=== PATIENT | male | born 1950 | race Caucasian/White ===

== ENCOUNTER → 2016-11-07 | Day surgery (SDC) | payer OTHER ==
[2016-10-30 14:43] VITALS: Ht 175.3 cm; Wt 74.5 kg
[~2016-11-07] VITALS: Ht 175.3 cm; Wt 74.5 kg
[~2016-11-07] MED LIST: 500ML BSS 0.3ML EPI 1:1000PF IRRIG ONE; ACETAMINOPHEN 325 MG TAB PO PRN; AMVISC PLUS 0.8ML SYRINGE INT OCU ONE; ASPCH81X PO; ATROPINE SULFATE 0.1 MG/ML 5ML SYR IV PRN; BROM0.07 OPL; BSS FLUSH ONE; EpHEDrine SULFATE INJ 50 MG/ML AMP IV PRN; EpINEphrine INJ 1MG/ML AMP 1 MG/ML AMP ONE; GLIP-197 PO; LACTATED RINGER'S 1000ML 500 ML IV SCH; LIDOCAINE 3.5% OPH GEL PER APPLICATION CHARGE ONE; LIDOCAINE HCL 1% MPF 2 ML VIAL ONE; MIDAZOLAM HCL 1 MG/ML 2ML VIAL ONE; OCUCOAT 1 ML SOLN IO ONE; POVIDONE-IODINE OP SOLN 30 ML BTL ONE; PRED1SUS3 OPL; PROPARACAINE 0.5% OP SOLN PER DROP CHARGE OPL SCH; TOBRAMYCIN/DEXAMETHASONE OPH OINT PER APPLN CHARGE ONE
[2016-11-07] MEDS: PHENYLEPHRINE HCL 2.5% OP SOLN PER DROP CHARGE OPL SCH ×2 (10:30→10:35)
[2016-11-07] MEDS: TROPICAMIDE 1% OP SOLN PER DROP CHARGE OPL SCH ×2 (10:31→10:36)
[2016-11-07] MEDS: CYCLOPENTOLATE HCL 1% OP SOLN PER DROP CHARGE OPL SCH ×2 (10:32→10:37)
[2016-11-07] MEDS: KETOROLAC 0.5% OP SOLN PER DROP CHARGE OPL SCH ×2 (10:33→10:38)
[2016-11-07] MEDS: GATIFLOXACIN OP SOLN PER DROP CHARGE OPL SCH ×2 (10:34→10:44)
--- NOTE | 2016-11-07 11:15 | History & Physical Bridge - [place] ---
H&P Re-Evaluation Bridge Note: I have examined the patient, reviewed the History & Physical and in the interval since the performance of the History & Physical I have noted the following changes of clinical significance: No changes noted
[2016-11-07 11:38] VITALS: TEMP 36.8
--- NOTE | 2016-11-07 11:38 | [facility] Operative Report ---
Operative Report Date of Service Nov 07, 2016. Operative Report 1. PREOPERATIVE DIAGNOSIS: Cataract of the left eye. 2. POSTOPERATIVE DIAGNOSIS: Same. 3. PROCEDURE: Phacoemulsification with intraocular lens implantation of the left eye. SURGEON: Dr. Danilo Ashton. ANESTHESIA: Topical Lidocaine gel, 1% Non- Preserved intracameral Lidocaine, and monitored intravenous sedation. INDICATIONS FOR THE PROCEDURE: The patient is a 66 - year-old male with a history of cataract of the left eye causing significant visual impairment. The details of the proposed procedure were explained to the patient who asked appropriate questions and following discussion of all risks, benefits and alternatives agreed to have the procedure done. 4. OPERATION AND FINDINGS: DESCRIPTION OF PROCEDURE: After informed consent was obtained, the patient was brought to the Operating Room at the [facility]. The patient was placed in a supine position and then the left eye was prepped and draped in the usual sterile fashion for intraocular surgery. A drop of topical Lidocaine gel was placed in the operative eye. A wire lid speculum was then placed in the fornices. A corneal paracentesis was then created temporally. The Non-Preserved Lidocaine was then instilled into the anterior chamber. The anterior chamber was then pressurized with viscoelastic. A 2.0 mm clear corneal incision was then created temporally. A cystotome was inserted into the anterior chamber and used to create a tear in the anterior lens capsule. This capsular tear was then used to create a small flap and the flap was dragged in a counterclockwise direction in order to create a continuous curvilinear capsulorrhexis. Hydrodissection was accomplished with balanced salt solution. Phacoemulsification of the lens nucleus was then performed in a standard [id number] technique. The phaco time was 19 seconds with an average power of 10 %. The remaining cortical material was removed using irrigation aspiration. The capsular bag was then filled with viscoelastic. A Bausch & Lomb MI60L +17.0 diopters lens was then loaded into the injector and injected into the capsular bag. The remaining viscoelastic was removed with the irrigation aspiration handpiece. The wound was hydrated and then checked and found to be watertight. The intraocular pressure was checked and found to be adequate. The wire lid speculum was removed and the patient's face was cleaned and dried. TobraDex ointment was placed in the inferior fornix. The patient was discharged to the Recovery Room having tolerated the procedure well. There were no complications. The patient will be seen tomorrow in the office for follow-up. I attest to the content of the Intraoperative Record and any orders documented therein. Any exceptions are noted below.
--- NOTE | 2016-11-07 11:38 | Discharge Instructions-SurgCtr ---
Discharge Instructions Date of Service Nov 07, 2016. Visit Reason for Visit: Left Cataract Discharge Discharge Diagnosis / Problem: cataract Discharge Goals Goal(s): Improve function Activity Recommendations Activity Limitations: per Instructions/Follow-up section Anesthesia . Post Anesthesia Instructions: If you have had General Anesthesia or IV Sedation: * Do not drive today. * Resume driving when surgeon permits. * Do not make important decisions or sign legal documents today. * Call surgeon for: 1. Temperature elevations greater than 101 degrees F. 2. Uncontrollable pain. 3. Excessive bleeding. 4. Persistent nausea and vomiting. 5. Medication intolerance (nausea, vomiting or rash). * For nausea and vomiting use only clear liquids such as: tea, soda, bouillon until nausea subsides, then gradually increase diet as tolerated. * If you have any concerns or questions, call your surgeon's office. If physician is unavailable and it is an emergency, call 911 or go to the nearest emergency room. . Instructions / Follow-Up Instructions / Follow-Up ACTIVITY RECOMMENDATIONS: * No strenuous lifting, jogging or running for 4 days * No swimming or yard work for 1 week. * Limited bending is permitted, such as putting on shoes. RETURN TO SCHOOL/WORK: No work until seen by physician in office. MEDICATIONS: Resume previous medications unless instructed otherwise by your surgeon. This includes eye drops for glaucoma. Zymaxid/Gatifloxacin (marroquin cap) - one drop every 2 hours until bedtime Nevanac/Ilevro/Prolensa/Ketorolac (wilcox cap) - one drop every 4 hours until bedtime Prednisolone (white/pink cap, SHAKE WELL) - one drop every 2 hours until bedtime Starting tomorrow - all 3 drops every 4 hours until seen in the office Optive drops - as needed for discomfort SPECIAL CARE INSTRUCTIONS: * Wear eyeshield when sleeping, for four nights. * You may wear your own glasses or sunglasses while awake. * You may read or watch TV * You may shower and wash your face, but be gentle around the eye and pat dry. * Blurry vision and mild irritation are normal. * Call office if pain is more severe or vision becomes dark at . FOLLOW UP VISIT: Follow-up with Dr Ashton tomorrow. Diet Recommendations Home Diet: resume previous diet Procedures Procedures Performed: Left Cataract Phacoemulsification With Intraocular Lens Implant Pending Studies Studies pending at discharge: no Medical Emergencies . Who to Call and When: Medical Emergencies: If at any time you feel your situation is an emergency, please call 911 immediately. . Non-Emergent Contact Non-Emergency issues call your: Mechanical Process Engineer . . "Provider Documentation" section prepared by Danilo Ashton. .
--- NOTE | 2016-11-07 11:54 | Anesthesia Progress Nt - [facility] ---
Anesthesia Post Op Note Date & Time Nov 07, 2016 at 11:54 Vital Signs Pain Intensity: 0 Vital Signs Past 12 Hours Date Time Temp Pulse Resp B/P Pulse Ox O2 Delivery O2 Flow Rate FiO2 11/07/16 10:25 36.4 81 16 161/91 97 Room Air Notes Mental Status: alert / awake / arousable, participated in evaluation Pt Amnestic to Procedure: Yes Nausea / Vomiting: adequately controlled Pain: adequately controlled Airway Patency, RR, SpO2: stable & adequate BP & HR: stable & adequate Hydration State: stable & adequate Anesthetic Complications: no major complications apparent
[2016-11-07 11:58] VITALS: BP 127/76; PULSE 80; O2SAT 97
== END | disposition home or self-care (01) ==
LOC: X.SURG 09:54
PROVIDERS: ATTEND Ophthalmology
DX: H26.9 Unspecified cataract (principal); E11.36 Type 2 diabetes mellitus with diabetic cataract; Z80.9 Family history of malignant neoplasm, unspecified; Z82.49 Family history of ischemic heart disease and other diseases of the circulatory system; Z83.3 Family history of diabetes mellitus; Z68.24 Body mass index [BMI] 24.0-24.9, adult; Z87.891 Personal history of nicotine dependence; Z98.52 Vasectomy status

== ENCOUNTER → 2016-11-28 | Day surgery (SDC) | payer OTHER ==
[2016-11-17 15:26] VITALS: Ht 175.3 cm; Wt 74.5 kg
[~2016-11-28] VITALS: Ht 175.3 cm; Wt 74.5 kg
[~2016-11-28] MED LIST changes: +ONDANSETRON INJ 2 MG/ML 2 ML VIAL IV PRN; -PROPARACAINE 0.5% OP SOLN PER DROP CHARGE OPL SCH; +PROPARACAINE 0.5% OP SOLN PER DROP CHARGE OPR SCH
[2016-11-28] MEDS: PHENYLEPHRINE HCL 2.5% OP SOLN PER DROP CHARGE OPR SCH ×2 (06:34→06:39)
[2016-11-28] MEDS: TROPICAMIDE 1% OP SOLN PER DROP CHARGE OPR SCH ×2 (06:35→06:40)
[2016-11-28] MEDS: CYCLOPENTOLATE HCL 1% OP SOLN PER DROP CHARGE OPR SCH ×2 (06:36→06:41)
[2016-11-28] MEDS: KETOROLAC 0.5% OP SOLN PER DROP CHARGE OPR SCH ×2 (06:37→06:42)
[2016-11-28] MEDS: GATIFLOXACIN OP SOLN PER DROP CHARGE OPR SCH ×2 (06:38→06:48)
--- NOTE | 2016-11-28 07:48 | [facility] Operative Report ---
Operative Report Date of Service November 28, 2016. Operative Report 1. PREOPERATIVE DIAGNOSIS: Cataract of the right eye. 2. POSTOPERATIVE DIAGNOSIS: Same. 3. PROCEDURE: Phacoemulsification with intraocular lens implantation of the right eye. SURGEON: Dr. Danilo Ashton. ANESTHESIA: Topical Lidocaine gel, 1% Non- Preserved intracameral Lidocaine, and monitored intravenous sedation. INDICATIONS FOR THE PROCEDURE: The patient is a 66 - year-old male with a history of cataract of the right eye causing significant visual impairment. The details of the proposed procedure were explained to the patient who asked appropriate questions and following discussion of all risks, benefits and alternatives agreed to have the procedure done. 4. OPERATION AND FINDINGS: DESCRIPTION OF PROCEDURE: After informed consent was obtained, the patient was brought to the Operating Room at the [facility]. The patient was placed in a supine position and then the right eye was prepped and draped in the usual sterile fashion for intraocular surgery. A drop of topical Lidocaine gel was placed in the operative eye. A wire lid speculum was then placed in the fornices. A corneal paracentesis was then created temporally. The Non-Preserved Lidocaine was then instilled into the anterior chamber. The anterior chamber was then pressurized with viscoelastic. A 2.0 mm clear corneal incision was then created temporally. A cystotome was inserted into the anterior chamber and used to create a tear in the anterior lens capsule. This capsular tear was then used to create a small flap and the flap was dragged in a counterclockwise direction in order to create a continuous curvilinear capsulorrhexis. Hydrodissection was accomplished with balanced salt solution. Phacoemulsification of the lens nucleus was then performed in a standard [id number]-[id number] technique. The phaco time was 22 seconds with an average power of 8 %. The remaining cortical material was removed using irrigation aspiration. The capsular bag was then filled with viscoelastic. A Bausch & Lomb MI60L +18.0 diopters lens was then loaded into the injector and injected into the capsular bag. The remaining viscoelastic was removed with the irrigation aspiration handpiece. The wound was hydrated and then checked and found to be watertight. The intraocular pressure was checked and found to be adequate. The wire lid speculum was removed and the patient's face was cleaned and dried. TobraDex ointment was placed in the inferior fornix. The patient was discharged to the Recovery Room having tolerated the procedure well. There were no complications. The patient will be seen tomorrow in the office for follow-up. I attest to the content of the Intraoperative Record and any orders documented therein. Any exceptions are noted below.
--- NOTE | 2016-11-28 07:48 | Discharge Instructions-SurgCtr ---
Discharge Instructions Date of Service November 28, 2016. Visit Reason for Visit: Cataract Right Eye Discharge Discharge Diagnosis / Problem: cataract Discharge Goals Goal(s): Improve function Activity Recommendations Activity Limitations: per Instructions/Follow-up section Anesthesia . Post Anesthesia Instructions: If you have had General Anesthesia or IV Sedation: * Do not drive today. * Resume driving when surgeon permits. * Do not make important decisions or sign legal documents today. * Call surgeon for: 1. Temperature elevations greater than 101 degrees F. 2. Uncontrollable pain. 3. Excessive bleeding. 4. Persistent nausea and vomiting. 5. Medication intolerance (nausea, vomiting or rash). * For nausea and vomiting use only clear liquids such as: tea, soda, bouillon until nausea subsides, then gradually increase diet as tolerated. * If you have any concerns or questions, call your surgeon's office. If physician is unavailable and it is an emergency, call 911 or go to the nearest emergency room. . Instructions / Follow-Up Instructions / Follow-Up ACTIVITY RECOMMENDATIONS: * No strenuous lifting, jogging or running for 4 days * No swimming or yard work for 1 week. * Limited bending is permitted, such as putting on shoes. RETURN TO SCHOOL/WORK: No work until seen by physician in office. MEDICATIONS: Resume previous medications unless instructed otherwise by your surgeon. This includes eye drops for glaucoma. Zymaxid/Gatifloxacin (marroquin cap) - one drop every 2 hours until bedtime Nevanac/Ilevro/Prolensa/Ketorolac (wilcox cap) - one drop every 4 hours until bedtime Prednisolone (white/pink cap, SHAKE WELL) - one drop every 2 hours until bedtime Starting tomorrow - all 3 drops every 4 hours until seen in the office Optive drops - as needed for discomfort SPECIAL CARE INSTRUCTIONS: * Wear eyeshield when sleeping, for four nights. * You may wear your own glasses or sunglasses while awake. * You may read or watch TV * You may shower and wash your face, but be gentle around the eye and pat dry. * Blurry vision and mild irritation are normal. * Call office if pain is more severe or vision becomes dark at . FOLLOW UP VISIT: Follow-up with Dr Ashton tomorrow. Diet Recommendations Home Diet: resume previous diet Procedures Procedures Performed: Right Cataract Phacoemulsification With Intraocular Lens Implant Pending Studies Studies pending at discharge: no Medical Emergencies . Who to Call and When: Medical Emergencies: If at any time you feel your situation is an emergency, please call 911 immediately. . Non-Emergent Contact Non-Emergency issues call your: Mica Miner . . "Provider Documentation" section prepared by Danilo Ashton. .
[2016-11-28 07:51] VITALS: TEMP 36.2
[2016-11-28 08:09] VITALS: BP 154/75; PULSE 85; O2SAT 96
--- NOTE | 2016-11-28 08:22 | Anesthesia Progress Nt - [facility] ---
Anesthesia Post Op Note Date & Time November 28, 2016 at 08:23 Vital Signs Pain Intensity: 0 Vital Signs Past 12 Hours Date Time Temp Pulse Resp B/P Pulse Ox O2 Delivery O2 Flow Rate FiO2 11/28/16 08:09 85 16 154/75 96 Room Air 11/28/16 07:51 36.2 78 16 151/76 97 Room Air 11/28/16 06:26 36.8 73 20 157/83 97 Room Air Notes Mental Status: alert / awake / arousable, participated in evaluation Pt Amnestic to Procedure: Yes Nausea / Vomiting: adequately controlled Pain: adequately controlled Airway Patency, RR, SpO2: stable & adequate BP & HR: stable & adequate Hydration State: stable & adequate Anesthetic Complications: no major complications apparent
== END | disposition home or self-care (01) ==
LOC: X.SURG 06:15
PROVIDERS: ATTEND Ophthalmology
DX: H26.9 Unspecified cataract (principal); E11.9 Type 2 diabetes mellitus without complications

== ENCOUNTER → 2017-03-08 | Outpatient (CLI) | payer OTHER ==
[~2017-03-08] MED LIST changes: -500ML BSS 0.3ML EPI 1:1000PF IRRIG ONE; -ACETAMINOPHEN 325 MG TAB PO PRN; -AMVISC PLUS 0.8ML SYRINGE INT OCU ONE; -ATROPINE SULFATE 0.1 MG/ML 5ML SYR IV PRN; -BSS FLUSH ONE; -EpHEDrine SULFATE INJ 50 MG/ML AMP IV PRN; -EpINEphrine INJ 1MG/ML AMP 1 MG/ML AMP ONE; -LACTATED RINGER'S 1000ML 500 ML IV SCH; -LIDOCAINE 3.5% OPH GEL PER APPLICATION CHARGE ONE; -LIDOCAINE HCL 1% MPF 2 ML VIAL ONE; -MIDAZOLAM HCL 1 MG/ML 2ML VIAL ONE; -OCUCOAT 1 ML SOLN IO ONE; -ONDANSETRON INJ 2 MG/ML 2 ML VIAL IV PRN; -POVIDONE-IODINE OP SOLN 30 ML BTL ONE; -PROPARACAINE 0.5% OP SOLN PER DROP CHARGE OPR SCH; -TOBRAMYCIN/DEXAMETHASONE OPH OINT PER APPLN CHARGE ONE
--- NOTE | 2017-03-08 09:51 | DIAGNOSTIC IMAGING REPORT ---
RIGHT KNEE 3 VIEWS CLINICAL HISTORY: Persistent right knee pain. COMPARISON: None FINDINGS: Alignment of the right knee is anatomic. No fracture or joint effusion is identified. There is mild spurring of the patella at the insertion of quadriceps. Joint spaces are preserved. There is mild osteophytosis of the medial compartment. IMPRESSION: 1. No acute fracture or joint effusion of the right knee. 2. Preserved joint spaces with mild osteophytosis of the medial compartment. Electronically signed by: Ruben Gtz M.D. 03/08/2017 9:50 AM Dictated Date/Time: 03/08/2017 9:49 AM
== END | disposition home or self-care (01) ==
LOC: C.RAD1850 09:20
PROVIDERS: ATTEND Internal Medicine
DX: M25.561 Pain in right knee (principal)

== ENCOUNTER → 2017-10-23 | Outpatient (CLI) | payer OTHER ==
[2017-10-24 06:02] LABS: HEMOGLOBIN A1C 10.2 % (4.5-5.6)
== END | disposition home or self-care (01) ==
LOC: C.LAB1850 14:08
PROVIDERS: ATTEND Nurse Practitioner Family
DX: E11.9 Type 2 diabetes mellitus without complications (principal)

== ENCOUNTER 2018-08-07 09:45 | Observation (INO) ==
[2018-08-07] MEDS ORDERED: MIDAZOLAM HCL 1 MG/ML 2ML VIAL ONE (11:05)
[2018-08-07] MEDS ORDERED: HEPARIN (PORCINE) 1000 UNIT/ML 10 ML (CATH LAB USE ONLY) ONE (11:05)
[2018-08-07] MEDS ORDERED: NiCARDipine HCL INJ 2.5 MG/ML 10 ML AMP ONE (11:05)
[2018-08-07] MEDS ORDERED: fentaNYL citrate 100 MCG/2 ML VIAL ONE (11:05)
[2018-08-07] MEDS ORDERED: NITROGLYCERIN/D5W 100MCG/ML 20ML SYR ONE (11:06)
--- NOTE | 2018-08-07 11:29 | History & Physical Bridge Note ---
Date of Service August 07, 2018 History & Physical Bridge Note I have examined the patient, reviewed the History & Physical and in the interval since the performance of the History & Physical I have noted the following changes of clinical significance: no changes noted
--- NOTE | 2018-08-07 11:29 | Pre Anesthesia Assessment ---
Date of Service August 07, 2018 Pre Sedation Assessment Vital Signs Temp Pulse Resp BP Pulse Ox 08/07/18 10:02 36.5 C 88 16 163/80 H 98 Cardiovascular RRR, no murmur, no edema Respiratory normal respiratory effort, lungs clear to auscultation Pre-Sedation Airway Assessment Smoking Status: Never smoker Hx Sleep Apnea: No Short, Thick Neck: No Thyromental Distance: > or= 3.5 Finger Breadths Oral Cavity: + WNL Mallampati Class: III ASA: ASA3 NPO Status Date of Last Intake of Fluids: 08/06/18 Time of Last Intake of Fluids: 18:00 Date of Last Intake of Solid Food: 08/06/18 Time of Last Intake of Solid Foods: 18:00 Procedure Planning Contraindications for Sedation: none Current Medications Reviewed: Yes Notes The planned sedation has been discussed with the patient. Informed Consent was obtained. I have identified the patient, determined the appropriateness of sedation and have assessed the patient immediately prior to the procedure. All medicine(s) and interventions are by my order.
[2018-08-07] MEDS ORDERED: CLOPIDOGREL BISULFATE 300 MG TAB ONE (13:04)
--- NOTE | 2018-08-07 13:32 | Post Anesthesia Assessment ---
Date of Service August 07, 2018 Post Sedation Assessment Vital Signs Temp Pulse Resp BP Pulse Ox 08/07/18 10:02 36.5 C 88 16 163/80 H 98 Recovery Score Activity: Moves 4 extremities Respiration: Deep Breath/Cough Circulation: +/-20% PreAnes Value Consciousness: Fully Awake Oxygen Saturation: O2 needed for >90% Discharge Sedation Level of Care: Fast Track Phase II Post Sedation Plan On clinical assessment, the patient appears to have tolerated the sedation without complications. Patient is recovering as anticipated. Patient will continue to be monitored by nursing and may be discharged when sedation discharge criteria are met per below protocol. Upon Completions of procedure and additional 15 minutes continue every 5 minute vital signs and the P.A.R. score; then discharge to a Phase I or Fast Track to Phase II per the following guidelines: * Discharge Patient to appropriate Phase II area if PAR is 8 or greater or return to pre- procedure baseline. The post - procedure orders will be as directed. * If PAR score is less than 8 or not return to pre-procedure baseline then patient will follow Phase I monitoring till PAR is reached for Phase II. The Phase I may be done in procedure room or may call to secure a Phase I area. * If naloxone or flumazenil are used for reversal, hold in Phase I for continued monitoring from when last reversal dose was given for a minimum of 60 minutes or longer pending the nurse and/or physician discretion of patient condition before discharge to Phase II. Please call the Sedation Physician to re-evaluate and complete post-note for discharge to Phase II area. Do NOT discharge from procedure sedation or Phase 1 until post- sedation evaluation note is complete by procedure /sedation MD Sedation Discharge Instructions to be given to the patient at discharge to home.
--- NOTE | 2018-08-07 13:44 | Cardiac Catheterization ---
Cardiac Cath Procedure Full Procedure Date August 07, 2018 Pre-Procedure Diagnosis Pre-Procedure Diagnosis: Positive Stress Test AUC Score AUC Score: 7 Post-Procedure Diagnosis Post-Procedure Diagnosis: Severe CAD, Successful PCI and Normal Intracardiac Pressures Procedure(s) Performed Procedure(s) Performed: Coronary Angiography, Left Heart Cath, Drug Eluting Stent and IVUS Sociology Professor Manny Da Silva MD Computer Education Professor(s) Arian Estimated Blood Loss Estimated Blood Loss: 10 Medication(s) Medication(s): Aspirin, Clopidogrel, Fentanyl, Heparin, Lidocaine 1%, Nicardipine, Nitroglycerin and Versed Summary of Findings Indication: Abnormal stress test, accelerating angina Access: 6 Cymro left radial artery Catheters: JL4, JR4 Findings: LM -moderate caliber, short length, luminal irregularities LAD -moderate caliber vessel, diffuse 70% stenosis in mid LAD just after takeoff of moderate caliber first diagonal, distal LAD with no significant disease as wraps around the apex Circumflex - moderate caliber vessel, focal 99% mid segment stenosis, luminal irregularities in distal left PLB RCA -large caliber vessel, dominant, luminal irregularities LVEDP -9 -- PCI -- Antithrombotic therapy: Heparin, clopidogrel Procedure: Left main cannulated with EBU 3.5 guide BMW wire passed across lesion into distal vessel Mid circumflex lesion predilated with 2.5 compliant balloon Dilated lesion stented with 2.75 x 18 resolute drug-eluting stent Stent post-dilated with 3.25 noncompliant balloon IC vasodilators administered for spasm Post procedure ELENITA 3 flow, stent well expanded with minimal residual stenosis and no apparent cardiac complications. Pro-water wire placed into distal first diagonal BMW wire removed from circumflex and placed across mid LAD lesion into distal vessel. Mid LAD dilated with 2.5 compliant balloon IVUS used to assess extent of disease, degree of calcification and for procedural planning. Mildly calcified plaque throughout mid segment extending across takeoff of first diagonal into proximal vessel Proximal to mid LAD stented with 2.5 x 22 mm resolute drug-eluting stent First diagonal rewired with bar pilot 50 wire LAD stent postdilated with 3.5 NC balloon IVUS showed well expanded stent with no apparent vessel complications IC vasodilators administered for spasm ELENITA-3 flow in LAD and diagonal. Moderate residual ostial stenosis in 1st diagonal. Arterial Closure: TR band Summary: 1. Severe multi vessel coronary artery disease -99% mid circumflex stenosis 70% mid LAD diffuse disease 2. Normal intracardiac filling pressure 3. Successful PCI of mid circumflex with single drug-eluting stent (2.75 x 18 mm resolute, postdilated with 3.25 NC). 4. Successful PCI of mid LAD with single drug-eluting stent across takeoff of moderate caliber first diagonal (2.5 x 22 mm resolute, postdilated with 3.5 NC). 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 Continue dual-antiplatelet therapy for at least 6 months Continue statin, and ASCVD risk factor modification Consult cardiac Rehab Hemodynamics Rest Ao:: 133/59/94 Final Ao: 86/51/65 LV: 142/ Recommendations Recommendations: PCI without planned CABG Specimens Specimens: None Radiation Exposure (mGy) 3793 Contrast (mls) 140 Fluids (cc crystalloids) Fluids (cc crystalloids): 193 Drains Drains: None Anesthesia Moderate Procedural Complication(s) None Disposition PCU 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 Cardiac Status Clinical evaluation leading to the procedure CAD Presenation: Positive Stress Test Anginal Classification: CCS III Heart Failure: No Cardiogenic Shock within 24 Hours: No Cardiac Arrest within 24 Hours: No Imaging Studies Past 6 Months: Yes Stress Studies Past 6 Months: Yes Stress Echocardiogram: Yes - Positive and Risk/Extent of Ischemia (Large) Diagnostic Physicians Name: Manny Da Silva MD Status: Elective Closure Device Percutaneous Entry Location: Radial Closure Device: Radial Band Recommendations: PCI without planned CABG PCI Indication: + Stress Test and Unstable Angina Lesion Segment Name: Mid circumflex Culprit Artery: Yes Stenosis Prior to Rx (%): 99 Chronic Total Occlusion: No IVUS: No FFR: No Pre-Procedure ELENITA Flow: 3 Previously Treated Lesion: No Lesion Complexity: Non-High/Non-C Lesion Length (mm): 12 Thrombus Present: Yes Bifurcation Lesion: No Guidewire Across Lesion: Stenosis Post-Procedure (%): 0 Post-Procedure ELENITA Flow : 3 Devices(s) Deployed: Yes Yes Lesion #2 Segment Name: Mid LAD Culprit Artery: Yes Stenosis Prior to Rx (%): 70 Chronic Total Occlusion: No IVUS: Yes FFR: No Pre-Procedure ELENITA Flow: 3 Previously Treated Lesion: No Lesion Complexity: High/C Lesion Length (mm): 20 Thrombus Present: No Bifurcation Lesion: Yes Guidewire Across Lesion: Yes Stenosis Post-Procedure (%): 0 Post-Procedure ELENITA Flow: 3 Devices(s) Deployed: Yes Intraprocedure Events Significant Disection: No Perforation: No
[2018-08-07] MEDS ORDERED: ONDANSETRON INJ 2 MG/ML 2 ML VIAL IV PRN (13:53)
[2018-08-07] MEDS ORDERED: ACETAMINOPHEN 325 MG TAB PO PRN (13:53)
[2018-08-07] MEDS ORDERED: NITROGLYCERIN SL 0.4 MG/TAB TAB SL PRN (13:55)
[2018-08-07] MEDS ORDERED: GLUCOSE 10 TABS/TUBE PO PRN (13:56)
[2018-08-07] MEDS ORDERED: CARBOHYDRATES FOR HYPOGLYCEMIA PO PRN (13:56)
[2018-08-07] MEDS ORDERED: DEXTROSE 50% 50 ML SYRINGE IV PRN (13:56)
[2018-08-07] MEDS ORDERED: GLUCAGON FOR INJ 1 MG VIAL SQ PRN (13:56)
[2018-08-07] MEDS ORDERED: GLUCOSE 40% GEL 15 GM TUBE PO PRN (13:56)
[2018-08-07] MEDS ORDERED: SODIUM CHLORIDE 0.9% 1000ML 1,000 ML IV SCH (14:00)
[2018-08-07] MEDS ORDERED: PNEUMOCOCCAL ADMINISTRATION CHARGE ONE (15:15)
[2018-08-07] MEDS ORDERED: PNEUMOCOCCAL POLYSACCHARIDES 25 MCG/0.5 ML VIAL/SYR IM ONE (15:15)
[2018-08-07] MEDS ORDERED: LISINOPRIL 5 MG TAB PO ONE (15:51)
[2018-08-07] MEDS: INSULIN ASPART 100 UNITS/ML 3 ML PEN SC SCH ×2 (18:09→21:17)
[2018-08-07] MEDS: METOPROLOL TARTRATE 25 MG TAB PO SCH (20:26)
[2018-08-08 06:45] LABS: Basophils # (auto) 0.01 K/uL (0-0.2); Basophils % (auto) 0.2 %; Eosinophils # (auto) 0.09 K/uL (0-0.5); Eosinophils % (auto) 1.4 %; Hematocrit (blood only) 37.5 % (42-52); Hemoglobin 11.8 g/dL (14.0-18.0); Immature Granulocytes # (auto) 0.01 K/uL (0.00-0.02); Immature Granulocytes % (auto) 0.2 %; Lymphocytes # (auto) 1.26 K/uL (1.2-3.4); Lymphocytes % (auto) 20.2 %; Mean Corpuscular Hgb Conc 31.5 g/dL (32-36); Mean Corpuscular Volume 76.7 fL (80-100); Mean Platelet Volume 9.7 fL (7.4-10.4); Monocytes # (auto) 0.57 K/uL (0.11-0.59); Monocytes % (auto) 9.1 %; Neutrophils # (auto) 4.29 K/uL (1.4-6.5); Neutrophils % (auto) 68.9 %; Platelet Count 238 K/uL (130-400); RDW Coefficient of Variation 14.7 % (11.5-14.5); RDW Standard Deviation 41.5 fL (36.4-46.3); Red Blood Count 4.89 M/uL (4.7-6.1); White Blood Count 6.23 K/uL (4.8-10.8)
[2018-08-08 07:11] LABS: BUN Creatinine Ratio 16.6 (10-20); Calcium 8.8 mg/dl (8.5-10.1); Creatinine Clr Calc Pharmacy 83.9 ml/min; Est GFR (African American) 102.8; Est GFR (Non-African American) 88.7; Potassium 4.4 mmol/L (3.5-5.1)
[2018-08-08] MEDS: METOPROLOL TARTRATE 25 MG TAB PO SCH (07:55)
[2018-08-08] MEDS: INSULIN ASPART 100 UNITS/ML 3 ML PEN SC SCH (07:57)
--- NOTE | 2018-08-08 08:32 | Discharge Summary ---
Date of Service August 08, 2018 Admission HPI Per Admitting Provider Mr. Calvert is a 68-year-old man with a history of hypertension, type 2 diabetes who presented for diagnostic coronary angiogram in the setting of grossly abnormal stress test and accelerating angina. Specialty Data Cardiology Cardiac catheterization/PCI 08/07/2018: 1. Severe multi vessel coronary artery disease -99% mid circumflex stenosis 70% mid LAD diffuse disease 2. Normal intracardiac filling pressure 3. Successful PCI of mid circumflex with single drug-eluting stent (2.75 x 18 mm resolute, postdilated with 3.25 NC). 4. Successful PCI of mid LAD with single drug-eluting stent across takeoff of moderate caliber first diagonal (2.5 x 22 mm resolute, postdilated with 3.5 NC). Moderate residual ostial diagonal disease with ELENITA-3 flow after stenting Discharge Data Procedures Performed Operation Date: 08/07/18 13:00 Actual Procedures p Cath, Left with Cors and Vent - Joby Da Silva MD s Cineradiography w/Routine Exam - Joby Da Silva MD s Drug Eluting Stent SGl Vessel - Joby Da Silva MD s Drug Eluting Stent each ADDTL Vessel - Joby Da Silva MD s IVUS Coronary Single Vessel - Joby Da Silva MD Hospital Course (1) Multi-vessel coronary artery stenosis: Patient underwent cardiac catheterization via left radial artery. He was found to have a 99% mid circumflex stenosis as well as a diffuse 70% mid LAD stenosis. He underwent PCI of his circumflex with single drug-eluting stent and PCI of his mid LAD with single drug-eluting stent. He had moderate residual stenosis in a moderate caliber diagonal following stenting. Post procedure he was admitted to telemetry for further observation. Overnight no events and patient felt well in the a.m. Telemetry unremarkable. On the a.m. of discharge patient was up walking the halls with no exertional discomfort. Left radial artery access site showed no apparent complications. Patient discharged on dual antiplatelet therapy with aspirin, clopidogrel. Follow-up with cardiology in 2 weeks. Follow-up with primary care regarding microcytic anemia. Discharge Instructions Home Medications ASPIRIN (ASPIRIN CHEWABLE) 81 mg PO QAM #0 10/30/16 [History Confirmed 08/06/18] glipizide 5 mg DAILY 08/06/18 [History Confirmed 08/06/18] glipizide 10 mg PO PM 08/06/18 [History Confirmed 08/06/18] lisinopril 5 mg DAILY 08/06/18 [History Confirmed 08/06/18] metoprolol tartrate 25 mg PO BID 08/06/18 [History Confirmed 08/06/18] nitroglycerin 1 tab DIRECTED PRN 08/06/18 [History Confirmed 08/06/18] atorvastatin 80 mg PO QAM 30 Days #60 tab 08/08/18 [Rx] clopidogrel 75 mg PO QAM 30 Days #30 tab 08/08/18 [Rx]
[2018-08-08] MEDS ORDERED: LISINOPRIL 5 MG TAB PO SCH (09:00)
[2018-08-08] MEDS ORDERED: ATORVASTATIN 40 MG TAB PO SCH (09:00)
[2018-08-08] MEDS ORDERED: ASPIRIN 81 MG ECTAB PO SCH (09:00)
[2018-08-08] MEDS ORDERED: CLOPIDOGREL BISULFATE 75 MG TAB PO SCH (09:00)
[2018-08-08] MEDS ORDERED: ENOXAPARIN INJ 40 MG/0.4 ML SYR SQ SCH (09:00)
== END 2018-08-08 08:50 | disposition home or self-care (01) ==
LOC: CC 09:45 → 2S 09:45

== ENCOUNTER 2018-08-11 15:40 | Inpatient (IN) ==
[2018-08-11 16:22] LABS: Basophils # (auto) 0.02 K/uL (0-0.2); Basophils % (auto) 0.4 %; Eosinophils % (auto) 1.8 %; Hematocrit (blood only) 36.6 % (42-52); Hemoglobin 11.7 g/dL (14.0-18.0); Immature Granulocytes # (auto) 0.01 K/uL (0.00-0.02); Immature Granulocytes % (auto) 0.2 %; Lymphocytes # (auto) 1.64 K/uL (1.2-3.4); Lymphocytes % (auto) 29.1 %; Mean Corpuscular Volume 76.4 fL (80-100); Mean Platelet Volume 9.5 fL (7.4-10.4); Monocytes # (auto) 0.34 K/uL (0.11-0.59); Neutrophils # (auto) 3.53 K/uL (1.4-6.5); Neutrophils % (auto) 62.5 %; Platelet Count 245 K/uL (130-400); RDW Coefficient of Variation 14.5 % (11.5-14.5); RDW Standard Deviation 40.5 fL (36.4-46.3); Red Blood Count 4.79 M/uL (4.7-6.1); White Blood Count 5.64 K/uL (4.8-10.8)
[2018-08-11 16:39] LABS: Albumin Level 3.4 gm/dl (3.4-5.0); BUN Creatinine Ratio 16.6 (10-20); Calcium 8.5 mg/dl (8.5-10.1); Creatinine Clr Calc Pharmacy 77.7 ml/min; Est GFR (African American) 96.2; Magnesium 2.1 mg/dl (1.8-2.4)
--- NOTE | 2018-08-11 16:44 | XRay Report ---
XR chest 1V portable CLINICAL HISTORY: 68 years-old Male presenting with Chest Pain. TECHNIQUE: Portable upright AP view of the chest was obtained. COMPARISON: None. FINDINGS: Cardiac silhouette borderline enlarged. Lungs are mildly hyperinflated. Calcified granulomata noted i n the periphery of the left lung and at the right lung base. No other focal opacity. No large effusio n or pneumothorax. Osseous structures normal. Upper abdomen normal. IMPRESSION: 1. No acute cardiopulmonary disease. Electronically signed by: Iván Alegre M.D. 08/11/2018 4:43 PM
[2018-08-11 16:49] LABS: Albumin Globulin Ratio 0.8 (0.9-2); Bilirubin,Total 0.3 mg/dl (0.2-1); Globulin 4.1 gm/dl (2.5-4.0); Total Protein 7.5 gm/dl (6.4-8.2); Troponin I 0.204 ng/ml (0-0.045)
[2018-08-11] MEDS ORDERED: Heparin IV Standard *NO* Bolus ONE (17:19)
[2018-08-11] MEDS ORDERED: HEPARIN 25000 UNIT/500 ML D5W IV ONE (17:42)
[2018-08-11 17:53] LABS: Prothrombin Time 9.9 Seconds (9.0-12.0)
--- NOTE | 2018-08-11 19:29 | History & Physical Report ---
Date of Service August 11, 2018 Assessment & Plan (1) Chest pain: This patient is a very pleasant 68-year-old male with a history of DMII, HTN, microcytic anemia, and CAD with PCI on 08/07/18 with stents to the left circumflex and LAD, who presents with substernal to left-sided chest pain that came on with shoveling snow today, was nonradiating, felt different from the pain he was having prior to his cardiac catheterization, was not associated with any shortness of breath, nausea, or diaphoresis, and was relieved with 3 nitroglycerin at home. When he got to the ER, he was chest pain-free and his ECG was without any ischemic changes. His troponin was elevated at 0.2 on arrival. 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 He reports that he has been taking all the medications as prescribed since his stent placement several days ago. The ER physician contacted his fancy sewer who recommended starting him on a heparin drip and observing overnight. Obviously, there would be concern for restenosis given recent PCI, although his pain did feel different from previous. -Admit to telemetry -Trend serial troponin -Check ECG if has chest pain again -Sublingual nitroglycerin as needed chest pain -Cardiology consultation requested -Continue the heparin drip which was started in the ER -Continue aspirin, Plavix, atorvastatin, metoprolol, and lisinopril -Follow ECG in the morning (2) Multi-vessel coronary artery stenosis: With recent stent to the left circumflex and LAD as above -Meds as above (3) Diabetes mellitus: Last hemoglobin A1c is 7.3% 7 months ago -Hold home glipizide and metformin -Start sliding scale insulin while here with Accu-Cheks q. before meals at bedtime -Check hemoglobin A1c in the morning (4) HTN (hypertension), benign: Blood pressures mildly elevated here -Continue metoprolol, lisinopril -Monitor (5) Microcytic anemia: Hemoglobin 11.7 with MCV 76. Review of previous labs only revealed labs drawn in 2001 which showed hemoglobin of 13 and MCV of 83. -Hemoccult stool -Check iron studies in the morning -will find out if he has had EGD/colonoscopy -Follow CBC (6) DVT prophylaxis: Heparin drip Disposition-admit to telemetry for observation overnight History of Present Illness Chief Complaint: Chest pain Primary Care Provider: Prabhu Scott MD This patient is a very pleasant 68-year-old male with a history of DMII, HTN, microcytic anemia, and CAD with PCI on 08/07/18 with stents to the left circumflex and LAD, who presents with substernal to left-sided chest pain that came on with shoveling snow today, was nonradiating, felt different from the pain he was having prior to his cardiac catheterization, was not associated with any shortness of breath, nausea, or diaphoresis, and was relieved with 3 nitroglycerin at home. When he got to the ER, he was chest pain-free and his ECG was without any ischemic changes. His troponin was elevated at 0.2 on arrival. 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 He reports that he has been taking all the medications as prescribed since his stent placement several days ago. The ER physician contacted his fancy sewer who recommended starting him on a heparin drip and observing overnight. Allergies Allergy/AdvReac Type Severity Reaction Status Date / Time No Known Drug Allergies Allergy Unknown . Verified 11/28/16 06:25 Home Medications Home Medications Medication Instructions Recorded Confirmed Type lisinopril 5 mg DAILY 08/06/18 08/11/18 History metoprolol tartrate 25 mg PO BID 08/06/18 08/11/18 History nitroglycerin 1 tab DIRECTED PRN 08/06/18 08/11/18 History clopidogrel 75 mg PO QAM 30 Days #30 tab 08/08/18 08/11/18 Rx aspirin [Aspirin Low Dose] 81 mg PO DAILY 08/11/18 08/11/18 History atorvastatin 40 mg PO QAM 08/11/18 08/11/18 History glipizide 5 mg PO QAM 08/11/18 08/11/18 History glipizide 10 mg PO QPM 08/11/18 08/11/18 History metformin 500 mg PO HS 08/11/18 08/11/18 History Past Med/Surg History Medical History Microcytic anemia Diabetes mellitus HTN (hypertension), benign Multi-vessel coronary artery stenosis Surgical History History of vasectomy History of cataract extraction Family History Father , Age 68 Heart attack Acute DVT (deep venous thrombosis) Mother , Age 72 Melanoma Sister Breast cancer Diabetes mellitus Social History marital status: Current Living Situation: Alone Current Living Situation Comment: Has 3 daughters that live far away, and a brother that lives locally who would be his POA current occupational status: employed 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 Other Information That Helps Us Care for You: No Feels Safe at Home: Yes Smoking Status: Never smoker Do You Dip or Chew Tobacco: No Hx Alcohol Use: No Hx Substance Use: No Beliefs That Will Affect Care: None Preferred Language: Persian Review of Systems All systems reviewed & are unremarkable except as noted in HPI & below Physical Exam 2 Vital Signs (Past 24 Hours): Last Vital Signs Temp 36.4 C L 08/11/18 15:44 Pulse 91 H 08/11/18 19:01 Resp 16 08/11/18 19:01 BP 165/101 H 08/11/18 19:01 Pulse Ox 20 L 08/11/18 17:40 Constitutional: WD/WN, vitals as above Eyes: PERRL, conjunctivae normal, anicteric sclerae ENMT: external ear and nose normal, oropharynx normal Neck: trachea midline, no thyromegaly Respiratory: normal respiratory effort, lungs clear to auscultation Cardiovascular: RRR, no murmur, no edema Gastrointestinal (Abdomen): normal bowel sounds, soft, nontender, no hepatosplenomegaly Musculoskeletal: Extremities: extremities normal to inspection; no cyanosis and no clubbing Skin: no rashes, warm and dry Neurologic: moves all extremities and awake; no focal motor deficits Psychiatric: A+Ox3, euthymic affect Results & Data Laboratory Results 08/11/18 08/11/18 08/11/18 Range/Units 21:49 16:00 16:00 WBC (4.8-10.8) K/uL RBC (4.7-6.1) M/uL Hgb (14.0-18.0) g/dL Hct (42-52) % MCV (80-100) fL MCH (25-34) pg MCHC (32-36) g/dL RDW Std Deviation (36.4-46.3) fL RDW Coeff of Jaylen (11.5-14.5) % Plt Count (130-400) K/uL MPV (7.4-10.4) fL Immature Gran % (Auto) % Neut % (Auto) % Lymph % (Auto) % [place] % (Auto) % Eos % (Auto) % Baso % (Auto) % Immature Gran # (Auto) (0.00-0.02) K/uL Neut # (Auto) (1.4-6.5) K/uL Lymph # (Auto) (1.2-3.4) K/uL [place] # (Auto) (0.11-0.59) K/uL Eos # (Auto) (0-0.5) K/uL Baso # (Auto) (0-0.2) K/uL PT 9.9 (9.0-12.0) Seconds INR 1.0 (0.9-1.1) Sodium 133 L (136-145) mmol/L Potassium 4.0 (3.5-5.1) mmol/L Chloride 101 (98-107) mmol/L Carbon Dioxide 26 (21-32) mmol/L Anion Gap 6.0 (3-11) BUN 16 (7-18) mg/dl Creatinine 0.94 (0.6-1.4) mg/dl Est Cr Clr Drug Dosing 77.7 ml/min Est GFR ( Amer) 96.2 Est GFR (Non-Af Amer) 83.0 BUN/Creatinine Ratio 16.6 (10-20) Glucose 293 H (70-99) mg/dl POC Glucose 252 H (70-99) Calcium 8.5 (8.5-10.1) mg/dl Magnesium 2.1 (1.8-2.4) mg/dl Total Bilirubin 0.3 (0.2-1) mg/dl AST 38 H (15-37) U/L ALT 50 (12-78) U/L Alkaline Phosphatase 110 (45-117) U/L Troponin I 0.204 H* (0-0.045) ng/ml Total Protein 7.5 (6.4-8.2) gm/dl Albumin 3.4 (3.4-5.0) gm/dl Globulin 4.1 H (2.5-4.0) gm/dl Albumin/Globulin Ratio 0.8 L (0.9-2) Lipase 352 (73-393) U/L 08/11/18 Range/Units 16:00 WBC 5.64 (4.8-10.8) K/uL RBC 4.79 (4.7-6.1) M/uL Hgb 11.7 L (14.0-18.0) g/dL Hct 36.6 L (42-52) % MCV 76.4 L (80-100) fL MCH 24.4 L (25-34) pg MCHC 32.0 (32-36) g/dL RDW Std Deviation 40.5 (36.4-46.3) fL RDW Coeff of Jaylen 14.5 (11.5-14.5) % Plt Count 245 (130-400) K/uL MPV 9.5 (7.4-10.4) fL Immature Gran % (Auto) 0.2 % Neut % (Auto) 62.5 % Lymph % (Auto) 29.1 % [place] % (Auto) 6.0 % Eos % (Auto) 1.8 % Baso % (Auto) 0.4 % Immature Gran # (Auto) 0.01 (0.00-0.02) K/uL Neut # (Auto) 3.53 (1.4-6.5) K/uL Lymph # (Auto) 1.64 (1.2-3.4) K/uL [place] # (Auto) 0.34 (0.11-0.59) K/uL Eos # (Auto) 0.10 (0-0.5) K/uL Baso # (Auto) 0.02 (0-0.2) K/uL PT (9.0-12.0) Seconds INR (0.9-1.1) Sodium (136-145) mmol/L Potassium (3.5-5.1) mmol/L Chloride (98-107) mmol/L Carbon Dioxide (21-32) mmol/L Anion Gap (3-11) BUN (7-18) mg/dl Creatinine (0.6-1.4) mg/dl Est Cr Clr Drug Dosing ml/min Est GFR ( Amer) Est GFR (Non-Af Amer) BUN/Creatinine Ratio (10-20) Glucose (70-99) mg/dl POC Glucose (70-99) Calcium (8.5-10.1) mg/dl Magnesium (1.8-2.4) mg/dl Total Bilirubin (0.2-1) mg/dl AST (15-37) U/L ALT (12-78) U/L Alkaline Phosphatase (45-117) U/L Troponin I (0-0.045) ng/ml Total Protein (6.4-8.2) gm/dl Albumin (3.4-5.0) gm/dl Globulin (2.5-4.0) gm/dl Albumin/Globulin Ratio (0.9-2) Lipase (73-393) U/L Diagnostic Findings Chest x-ray image personally reviewed by me and agree with the following report: XR chest 1V portable CLINICAL HISTORY: 68 years-old Male presenting with Chest Pain. TECHNIQUE: Portable upright AP view of the chest was obtained. COMPARISON: None. FINDINGS: Cardiac silhouette borderline enlarged. Lungs are mildly hyperinflated. Calcified granulomata noted in the periphery of the left lung and at the right lung base. No other focal opacity. No large effusion or pneumothorax. Osseous structures normal. Upper abdomen normal. IMPRESSION: 1. No acute cardiopulmonary disease. 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
[2018-08-11] MEDS ORDERED: ONDANSETRON INJ 2 MG/ML 2 ML VIAL IV PRN (20:33)
[2018-08-11] MEDS ORDERED: ACETAMINOPHEN 325 MG TAB PO PRN (20:33)
[2018-08-11] MEDS ORDERED: NITROGLYCERIN SL 0.4 MG/TAB TAB SL PRN (20:33)
[2018-08-11] MEDS ORDERED: GLUCAGON FOR INJ 1 MG VIAL SQ PRN (20:33)
[2018-08-11] MEDS ORDERED: DEXTROSE 50% 50 ML SYRINGE IV PRN (20:33)
[2018-08-11] MEDS ORDERED: CARBOHYDRATES FOR HYPOGLYCEMIA PO PRN (20:33)
[2018-08-11] MEDS ORDERED: POLYETHYLENE (MIRALAX) 17 GM PACK PO PRN (20:33)
[2018-08-11] MEDS ORDERED: GLUCOSE 40% GEL 15 GM TUBE PO PRN (20:33)
[2018-08-11] MEDS ORDERED: GLUCOSE 10 TABS/TUBE PO PRN (20:33)
[2018-08-11] MEDS: METOPROLOL TARTRATE 25 MG TAB PO SCH (21:51)
[2018-08-11] MEDS: INSULIN ASPART 100 UNITS/ML 3 ML PEN SC SCH (21:55)
[2018-08-11] MEDS: HEPARIN SODIUM/DEXTROSE 25,000 UNITS/500 ML BAG IV SCH (21:56)
--- NOTE | 2018-08-11 22:31 | Emergency Department Note ---
Entered by Hao Enriquez acting as a scribe for Bucky Carney MD History of Present Illness General Chief complaint: Chest Pain Stated complaint: CHEST PAINS Time Seen by Provider: 08/11/18 16:02 Source: patient Limitations: no limitations History of Present Illness Provider complaint: Chest pain Onset (ago): hour(s) Location: chest and left Radiation: non-radiation Pain Consistency: + now resolved Maximum Pain Intensity: 1 Quality: + other ("discomfort" ) Relieved By: + medication (Nitro) Associated symptoms: + denies other symptoms (No abd pain ) and + other; no fever/chills, no nausea/vomiting and no shortness of breath Treatments prior to arrival: other (Nitro) The patient is a 68 year old white male with a history of multi-vessel coronary artery stenosis and recent stent placement who presents to the Emergency Room with complaints of now-resolved chest pain that began this morning. The patient has a significant recent medical history including a cardiac catheterization on Sunday, 4 days ago, with subsequent placement of 2 stents. This morning he went out to shovel some snow and developed pain over the left chest. He describes the sensation as a "discomfort" that did not radiate. The patient also complains of "numbness" in the left arm/hand. He did take 3 0.4-mg Nitroglycerin this morning which improved the pain. Dr. Da Silva prescribed the patient Plavix and Baby Aspirin following the procedure, which he did take this morning. Home Medications Home Medications Medication Instructions Recorded Confirmed Type lisinopril 5 mg DAILY 08/06/18 08/11/18 History metoprolol tartrate 25 mg PO BID 08/06/18 08/11/18 History nitroglycerin 1 tab DIRECTED PRN 08/06/18 08/11/18 History clopidogrel 75 mg PO QAM 30 Days #30 tab 08/08/18 08/11/18 Rx aspirin [Aspirin Low Dose] 81 mg PO DAILY 08/11/18 08/11/18 History atorvastatin 40 mg PO QAM 08/11/18 08/11/18 History glipizide 5 mg PO QAM 08/11/18 08/11/18 History glipizide 10 mg PO QPM 08/11/18 08/11/18 History metformin 500 mg PO HS 08/11/18 08/11/18 History Allergies Allergy/AdvReac Type Severity Reaction Status Date / Time No Known Drug Allergies Allergy Unknown . Verified 11/28/16 06:25 Past Med/Surg History Medical History Microcytic anemia Diabetes mellitus HTN (hypertension), benign Multi-vessel coronary artery stenosis Surgical History History of vasectomy History of cataract extraction Family History Father , Age 68 Heart attack Acute DVT (deep venous thrombosis) Mother , Age 72 Melanoma Sister Breast cancer Diabetes mellitus Social History marital status: Current Living Situation: Alone Current Living Situation Comment: Has 3 daughters that live far away, and a brother that lives locally who would be his POA current occupational status: employed 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 and A total of 10 systems reviewed and were otherwise negative Physical Exam Vital Signs Vital Signs - 24 hr 08/11/18 15:44 08/11/18 15:59 08/11/18 16:00 Temperature 36.4 C L Temperature Source Oral Sepsis Recent Fever Within 48 Hours No Sepsis New/Unexplained Change in Mental Status No Sepsis Action Taken by Nursing No Action Required Pulse Rate 85 73 75 Pulse Rate [Apical] Pulse Rhythm Pulse Rhythm [Apical] Respiratory Rate 18 15 16 Respiratory Effort / Characteristics Non-Labored Spontaneous Respiratory Depth Normal Respiratory Pattern Regular Blood Pressure Blood Pressure [Right Arm] Blood Pressure Mean Blood Pressure Mean [Right Arm] Blood Pressure Position [Right Arm] Pulse Oximetry 98 Oxygen Delivery Method Room Air 08/11/18 16:14 08/11/18 16:25 08/11/18 17:00 Temperature Temperature Source Sepsis Recent Fever Within 48 Hours Sepsis New/Unexplained Change in Mental Status Sepsis Action Taken by Nursing Pulse Rate 76 70 75 Pulse Rate [Apical] Pulse Rhythm Regular Pulse Rhythm [Apical] Respiratory Rate 18 16 Respiratory Effort / Characteristics Respiratory Depth Respiratory Pattern Blood Pressure 149/75 H Blood Pressure [Right Arm] Blood Pressure Mean 99 Blood Pressure Mean [Right Arm] Blood Pressure Position [Right Arm] Pulse Oximetry 98 Oxygen Delivery Method Room Air 08/11/18 17:31 08/11/18 17:34 08/11/18 17:40 Temperature Temperature Source Sepsis Recent Fever Within 48 Hours Sepsis New/Unexplained Change in Mental Status Sepsis Action Taken by Nursing Pulse Rate 71 69 Pulse Rate [Apical] 67 Pulse Rhythm Pulse Rhythm [Apical] Regular Respiratory Rate 16 20 Respiratory Effort / Characteristics Non-Labored Respiratory Depth Normal Respiratory Pattern Regular Blood Pressure 149/78 H Blood Pressure [Right Arm] 149/78 H Blood Pressure Mean 101 Blood Pressure Mean [Right Arm] 101 Blood Pressure Position [Right Arm] Sitting Pulse Oximetry 20 L Oxygen Delivery Method Room Air 08/11/18 18:01 08/11/18 18:02 08/11/18 19:00 Temperature Temperature Source Sepsis Recent Fever Within 48 Hours Sepsis New/Unexplained Change in Mental Status Sepsis Action Taken by Nursing Pulse Rate 69 65 90 Pulse Rate [Apical] Pulse Rhythm Pulse Rhythm [Apical] Respiratory Rate 22 22 18 Respiratory Effort / Characteristics Respiratory Depth Respiratory Pattern Blood Pressure 162/90 H Blood Pressure [Right Arm] Blood Pressure Mean 114 Blood Pressure Mean [Right Arm] Blood Pressure Position [Right Arm] Pulse Oximetry Oxygen Delivery Method 08/11/18 19:01 08/11/18 19:02 08/11/18 19:40 Temperature Temperature Source Sepsis Recent Fever Within 48 Hours Sepsis New/Unexplained Change in Mental Status Sepsis Action Taken by Nursing Pulse Rate 91 H 87 77 Pulse Rate [Apical] Pulse Rhythm Pulse Rhythm [Apical] Respiratory Rate 16 17 15 Respiratory Effort / Characteristics Respiratory Depth Respiratory Pattern Blood Pressure 165/101 H 150/77 H Blood Pressure [Right Arm] Blood Pressure Mean 122 101 Blood Pressure Mean [Right Arm] Blood Pressure Position [Right Arm] Pulse Oximetry Oxygen Delivery Method 08/11/18 20:34 Temperature 36.4 C L Temperature Source Oral Sepsis Recent Fever Within 48 Hours Sepsis New/Unexplained Change in Mental Status Sepsis Action Taken by Nursing Pulse Rate Pulse Rate [Apical] 70 Pulse Rhythm Pulse Rhythm [Apical] Respiratory Rate 18 Respiratory Effort / Characteristics Respiratory Depth Respiratory Pattern Blood Pressure Blood Pressure [Right Arm] 162/79 H Blood Pressure Mean Blood Pressure Mean [Right Arm] 106 Blood Pressure Position [Right Arm] Pulse Oximetry 97 Oxygen Delivery Method GENERAL: Well appearing, well nourished, NAD, non-toxic. EYE EXAM: Normal conjunctiva. PERRL, no anisocoria and EOM's grossly intact w/o pain. OROPHARYNX: No exudate, posterior pharynx is clear, no tonsillar/uvular deviation or swelling. NECK: Supple, no nuchal rigidity, no adenopathy, non-tender. no signs of meningismus. LUNGS: Clear to auscultation. Normal chest wall mechanics. HEART: NSR, no MRG. ABDOMEN: Abdomen soft, non-tender, normo-active bowel sounds, no masses, no rebound or guarding. BACK: No CVA TTP. SKIN: No rashes and no bruising. UPPER EXTREMITIES: There is bruising over the volar distal aspect of the left wrist and hand. Well perfused, good radial pulses. LOWER EXTREMITIES: No pitting edema. No calf pain. NEURO EXAM: Cranial nerves II-XII grossly intact, normal speech, 5/5 strength throughout, moves all 4 extremities on command w/o issue. Course 1604: Past medical records reviewed. The patient was evaluated in room B2, and a complete history and physical examination were performed. 1657: I reviewed the patient's case with Dr. Da Silva - [facility]. He suggests starting Heparin and giving the patient a full-dose Aspirin. He suggests admitting to medicine. 1712: I reviewed the patient's [facility] She will evaluate the patient for further management. 1722: I updated the patient at this time. Consultations Consultation #1: 1657: I reviewed the patient's case with Dr. Avinash [facility]. He suggests starting Heparin and giving the patient a full-dose Aspirin. He suggests admitting to medicine. Consultation #2: 1712: I reviewed the patient's case [facility] She will evaluate the patient for further management. Administered Medications Heparin Sodium/Dextrose (Heparin Sodium/Dextrose) 25,000 units in 500 mls @ 27 mls/hr IV .[id number] [facility]; Protocol Stop: 09/10/18 21:44 Last Admin: 08/11/18 21:56 Dose: 1,350 units/hr, 27 mls/hr Insulin Aspart (Novolog Flexpen) 0 units SC ACHS AZEB Stop: 09/10/18 20:59 Last Admin: 08/11/18 21:55 Dose: 4 units Metoprolol Tartrate (Lopressor) 25 mg PO BID AZEB Stop: 09/10/18 20:59 Last Admin: 08/11/18 21:51 Dose: 25 mg Discontinued Medications Heparin Sodium/Dextrose () 1 ea N/A ONE ONE; Protocol Stop: 08/11/18 17:20 Last Admin: 08/11/18 17:57 Dose: Not Given Heparin Sodium/Dextrose (Heparin Sodium/Dextrose) Confirm Administered Dose 25, 000 units IV .STK-MED ONE Stop: 08/11/18 17:43 Last Admin: 08/11/18 17:55 Dose: 1,350 units Medical Decision Making Medical Records Attestation: I reviewed the patient's medical records. Home Medications Current Medication List: was personally reviewed by me Laboratory Data Attestation: I reviewed the patient's lab results. Result diagrams: 08/11/18 16:00 08/11/18 16:00 Lab Results 08/11/18 08/11/18 08/11/18 Range/Units 16:00 16:00 16:00 WBC 5.64 (4.8-10.8) K/uL RBC 4.79 (4.7-6.1) M/uL Hgb 11.7 L (14.0-18.0) g/dL Hct 36.6 L (42-52) % MCV 76.4 L (80-100) fL MCH 24.4 L (25-34) pg MCHC 32.0 (32-36) g/dL RDW Std Deviation 40.5 (36.4-46.3) fL RDW Coeff of Jaylen 14.5 (11.5-14.5) % Plt Count 245 (130-400) K/uL MPV 9.5 (7.4-10.4) fL Immature Gran % (Auto) 0.2 % Neut % (Auto) 62.5 % Lymph % (Auto) 29.1 % [place] % (Auto) 6.0 % Eos % (Auto) 1.8 % Baso % (Auto) 0.4 % Immature Gran # (Auto) 0.01 (0.00-0.02) K/uL Neut # (Auto) 3.53 (1.4-6.5) K/uL Lymph # (Auto) 1.64 (1.2-3.4) K/uL [place] # (Auto) 0.34 (0.11-0.59) K/uL Eos # (Auto) 0.10 (0-0.5) K/uL Baso # (Auto) 0.02 (0-0.2) K/uL PT 9.9 (9.0-12.0) Seconds INR 1.0 (0.9-1.1) Sodium 133 L (136-145) mmol/L Potassium 4.0 (3.5-5.1) mmol/L Chloride 101 (98-107) mmol/L Carbon Dioxide 26 (21-32) mmol/L Anion Gap 6.0 (3-11) BUN 16 (7-18) mg/dl Creatinine 0.94 (0.6-1.4) mg/dl Est Cr Clr Drug Dosing 77.7 ml/min Est GFR ( Amer) 96.2 Est GFR (Non-Af Amer) 83.0 BUN/Creatinine Ratio 16.6 (10-20) Glucose 293 H (70-99) mg/dl POC Glucose (70-99) Calcium 8.5 (8.5-10.1) mg/dl Magnesium 2.1 (1.8-2.4) mg/dl Total Bilirubin 0.3 (0.2-1) mg/dl AST 38 H (15-37) U/L ALT 50 (12-78) U/L Alkaline Phosphatase 110 (45-117) U/L Troponin I 0.204 H* (0-0.045) ng/ml Total Protein 7.5 (6.4-8.2) gm/dl Albumin 3.4 (3.4-5.0) gm/dl Globulin 4.1 H (2.5-4.0) gm/dl Albumin/Globulin Ratio 0.8 L (0.9-2) Lipase 352 (73-393) U/L 08/11/18 Range/Units 21:49 WBC (4.8-10.8) K/uL RBC (4.7-6.1) M/uL Hgb (14.0-18.0) g/dL Hct (42-52) % MCV (80-100) fL MCH (25-34) pg MCHC (32-36) g/dL RDW Std Deviation (36.4-46.3) fL RDW Coeff of Jaylen (11.5-14.5) % Plt Count (130-400) K/uL MPV (7.4-10.4) fL Immature Gran % (Auto) % Neut % (Auto) % Lymph % (Auto) % [place] % (Auto) % Eos % (Auto) % Baso % (Auto) % Immature Gran # (Auto) (0.00-0.02) K/uL Neut # (Auto) (1.4-6.5) K/uL Lymph # (Auto) (1.2-3.4) K/uL [place] # (Auto) (0.11-0.59) K/uL Eos # (Auto) (0-0.5) K/uL Baso # (Auto) (0-0.2) K/uL PT (9.0-12.0) Seconds INR (0.9-1.1) Sodium (136-145) mmol/L Potassium (3.5-5.1) mmol/L Chloride (98-107) mmol/L Carbon Dioxide (21-32) mmol/L Anion Gap (3-11) BUN (7-18) mg/dl Creatinine (0.6-1.4) mg/dl Est Cr Clr Drug Dosing ml/min Est GFR ( Amer) Est GFR (Non-Af Amer) BUN/Creatinine Ratio (10-20) Glucose (70-99) mg/dl POC Glucose 252 H (70-99) Calcium (8.5-10.1) mg/dl Magnesium (1.8-2.4) mg/dl Total Bilirubin (0.2-1) mg/dl AST (15-37) U/L ALT (12-78) U/L Alkaline Phosphatase (45-117) U/L Troponin I (0-0.045) ng/ml Total Protein (6.4-8.2) gm/dl Albumin (3.4-5.0) gm/dl Globulin (2.5-4.0) gm/dl Albumin/Globulin Ratio (0.9-2) Lipase (73-393) U/L Imaging Data Attestation: I personally reviewed and interpreted this imaging study as follows : Radiologist's Impression: XR chest 1V portable CLINICAL HISTORY: 68 years-old Male presenting with Chest Pain. TECHNIQUE: Portable upright AP view of the chest was obtained. COMPARISON: None. FINDINGS: Cardiac silhouette borderline enlarged. Lungs are mildly hyperinflated. Calcified granulomata noted in the periphery of the left lung and at the right lung base. No other focal opacity. No large effusion or pneumothorax. Osseous structures normal. Upper abdomen normal. IMPRESSION: 1. No acute cardiopulmonary disease. Electronically signed by: Iván Alegre M.D. 08/11/2018 4:43 PM ECG Data Attestation: I personally reviewed and interpreted this ECG as follows: Indication: chest pain Rate (beats per minute): 74 Rhythm: normal sinus Findings: + other (normal axis, normal intervals) and + T-wave inversion (AvL) Blood Pressure Blood Pressure Findings: Elevated blood pressure Blood Pressure Disposition: further management by hospitalist SEAN Narrative The patient is a 68 year old white male with a history of multi-vessel coronary artery stenosis and recent stent placement who presents to the Emergency Room with complaints of now-resolved chest pain that began this morning. Differential diagnosis: Etiologies such as shingles, musculoskeletal pain, pericarditis, myocarditis, cardiac ischemia, pericardial tamponade, pneumonia, pneumothorax, pleural effusion, hemothorax, pleurisy, aortic pathology, pulmonary embolism, intra- abdominal process, as well as others were considered. Patient was seen and evaluated the bedside. The patient did have a recent stent placed to the left circumflex as well as left anterior descending artery by Dr. Da Silva on Sunday. The patient states he was shoveling some snow today and did have a recurrence of some centralized chest pain and associated improvement with nitroglycerin. The patient had taken 3 prior to arrival. The patient is currently chest pain-free. Patient did a blood work completed along with EKG and troponin. The patient EKG is unremarkable. Troponin is 0.2. The patient is without chest pain. I did speak with Dr. Da Silva who recommended heparin. Patient was started on a heparin drip. I did speak the on-call hospitalist who agreed to further evaluate treat the patient. The patient was admitted to the medicine service. Impression & Plan Atypical chest pain Critical Care Time I have personally spent greater than 45 minutes of critical care time in the direct management of this patient. This includes bedside care, interpretation of diagnostic studies, and testing, discussion with consultants, patient, and family members, and other required patient management activities. This 45 minutes is in excess of all separately billable procedures. Critical Care Time: Yes Total Critical Care Time: 45 Discharge Plan Visit Data *Final* Discharge Date/Time: 08/11/18 20:39 Chief Complaint: Chest Pain Stated Complaint: CHEST PAINS ED Provider: Bucky Carney Discharge Problem: Atypical chest pain Patient Disposition: Admitted As Inpatient Discharge Instructions Interventions: ED Discharge Assessment Last Done: 08/11/18 20:39 The scribe's documentation has been prepared under my direction and personally reviewed by me in its entirety. I confirm that the note above accurately reflects all work, treatment, procedures, and medical decision making performed by me.
[2018-08-12 00:01] LABS: Partial Thromboplastin Ratio 1.6; Partial Thromboplastin Time 42.1 Seconds (21.0-31.0)
[2018-08-12] MEDS ORDERED: HEPARIN IV BOLUS 3,000 UNITS in SYRINGE 0 ML IV SCH (00:15)
[2018-08-12 06:42] LABS: Partial Thromboplastin Ratio 3.1
[2018-08-12 06:54] LABS: Ferritin 12.3 ng/ml (8-388); Troponin I 0.146 ng/ml (0-0.045)
[2018-08-12 06:59] LABS: BUN Creatinine Ratio 16.2 (10-20); Calcium 8.7 mg/dl (8.5-10.1); Creatinine Clr Calc Pharmacy 76.8 ml/min; Est GFR (African American) 94.9; Est GFR (Non-African American) 81.9; Magnesium 2.2 mg/dl (1.8-2.4); Potassium 4.6 mmol/L (3.5-5.1)
[2018-08-12 07:12] LABS: Estimated Average Glucose 255 mg/dl
[2018-08-12 07:18] LABS: Partial Thromboplastin Time 80.5 Seconds (21.0-31.0)
[2018-08-12] MEDS: INSULIN ASPART 100 UNITS/ML 3 ML PEN SC SCH ×4 (08:07→20:27)
[2018-08-12] MEDS: METOPROLOL TARTRATE 25 MG TAB PO SCH (08:08)
[2018-08-12] MEDS: ASPIRIN 81 MG ECTAB PO SCH (08:08)
[2018-08-12] MEDS: CLOPIDOGREL BISULFATE 75 MG TAB PO SCH (08:08)
[2018-08-12] MEDS: ATORVASTATIN 40 MG TAB PO SCH (08:08)
[2018-08-12] MEDS: LISINOPRIL 5 MG TAB PO SCH (08:09)
--- NOTE | 2018-08-12 10:04 | Cardiology Consultation ---
Date of Consultation August 12, 2018 Assessment & Plan (1) Multi-vessel coronary artery stenosis: Patient with typical anginal symptoms yesterday following exertion. Has been chest pain-free since arrival but noted to have mildly elevated troponin which has since peaked and trended down. Suspicion for sub-acute stent thrombosis is low. Reviewed recent coronary angiography from last week. He did have a moderate caliber diagonal at the site of LAD stenting with moderate residual stenosis post procedure. Some concenr for flow-limiting disease at that site. In that setting will plan to proceed with cardiac catheterization via left radial artery. Continue heparin infusion until configuration release manager to Service Desk Technician. N.p.o. today. Continue dual antiplatelet therapy with aspirin, clopidogrel. Further conditions pending findings of cardiac catheterization. Thank you for allowing us to participate in the care of this patient. Please contact with any questions. History of Present Illness Attending Physician: Leeanne Caro MD History of Present Illness Mr. Calvert is a 68-year-old male with a medical history significant for hypertension and type 2 DM and multivessel coronary artery disease post PCI with stent to LAD, circumflex last week who returned with acute onset chest pain yesterday. Patient states had been feeling well following PCI until yesterday morning when was out shoveling snow and soon thereafter developed stuttering central chest pain/pressure with numbness in his left arm. He took 3 sublingual nitroglycerin with near complete resolution of symptoms but due to residual symptoms presented to the ED. Upon arrival patient was chest pain-free he was hemodynamically electrically stable. His presenting EKG was largely unremarkable. Initial troponin was positive at 0.2 and he was admitted for further observation. Since admission he had no further chest pain. Troponin peaked at 0.23 and has since trended down. No events on telemetry. PCI from 08/07/2018: Summary: 1. Severe multi vessel coronary artery disease -99% mid circumflex stenosis 70% mid LAD diffuse disease 2. Normal intracardiac filling pressure 3. Successful PCI of mid circumflex with single drug-eluting stent (2.75 x 18 mm resolute, postdilated with 3.25 NC). 4. Successful PCI of mid LAD with single drug-eluting stent across takeoff of moderate caliber first diagonal (2.5 x 22 mm resolute, postdilated with 3.5 NC). Moderate residual ostial diagonal disease with ELENITA-3 flow after stenting Allergies Allergy/AdvReac Type Severity Reaction Status Date / Time No Known Drug Allergies Allergy Unknown . Verified 11/28/16 06:25 Home Medications Home Medications Medication Instructions Recorded Confirmed Type lisinopril 5 mg DAILY 08/06/18 08/11/18 History nitroglycerin 1 tab DIRECTED PRN 08/06/18 08/11/18 History clopidogrel 75 mg PO QAM 30 Days #30 tab 08/08/18 08/11/18 Rx aspirin [Aspirin Low Dose] 81 mg PO DAILY 08/11/18 08/11/18 History atorvastatin 40 mg PO QAM 08/11/18 08/11/18 History glipizide 5 mg PO QAM 08/11/18 08/11/18 History glipizide 10 mg PO QPM 08/11/18 08/11/18 History ferrous sulfate 325 mg PO BID #60 tab 08/13/18 Rx metoprolol tartrate 50 mg PO BID #60 tab 08/13/18 Rx Patient History Medical History Microcytic anemia Diabetes mellitus HTN (hypertension), benign Multi-vessel coronary artery stenosis Surgical History History of vasectomy History of cataract extraction Family History Father , Age 68 Heart attack Acute DVT (deep venous thrombosis) Mother , Age 72 Melanoma Sister Breast cancer Diabetes mellitus Social History marital status: Current Living Situation: Alone Current Living Situation Comment: Has 3 daughters that live far away, and a brother that lives locally who would be his POA current occupational status: employed 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 Other Information That Helps Us Care for You: No Feels Safe at Home: Yes Smoking Status: Never smoker Do You Dip or Chew Tobacco: No Hx Alcohol Use: No Hx Substance Use: No Beliefs That Will Affect Care: None Preferred Language: Malaysian Review of Systems 10 point review of systems was completed and was otherwise negative unless stated in HPI Physical Exam 2 Vital Signs (Past 24 Hours): Last Vital Signs Temp 36.5 C 08/12/18 08:00 Pulse 75 08/12/18 08:00 Resp 16 08/12/18 08:00 BP 157/88 H 08/12/18 08:00 Pulse Ox 98 08/12/18 08:00 Physical Exam: General: Comfortable, no acute distress Eyes: Sclerae anicteric, extraocular movements intact HENT: Oropharynx clear mucous membranes moist Neck: Normal carotid upstrokes, no bruits. No JVD. Lungs: Clear to auscultation bilaterally, no rhonchi or wheezes Cardiac: Regular rate and rhythm, no murmurs, rubs or gallops. Vascular: 2+ radial, DP and PT pulses. Minimal residual ecchymosis at left radial artery access site Abdomen: Soft, nontender, nondistended, positive bowel sounds. Extremities: Well perfused, no peripheral edema Skin: No rashes or lesions. Neuro: Nonfocal Psych: Alert orient x3, normal affect and mood
[2018-08-12] MEDS: INSULIN GLARGINE SOLOSTAR 100 UNITS/ML 3 ML PEN SC SCH (10:09)
[2018-08-12] MEDS: HEPARIN SODIUM/DEXTROSE 25,000 UNITS/500 ML BAG IV SCH (10:38)
[2018-08-12 13:58] LABS: Partial Thromboplastin Ratio 2.2
[2018-08-12 14:02] LABS: Partial Thromboplastin Time 56.7 Seconds (21.0-31.0)
[2018-08-12] MEDS ORDERED: HEPARIN (PORCINE) 1000 UNIT/ML 10 ML (CATH LAB USE ONLY) ONE (14:12)
[2018-08-12] MEDS ORDERED: NiCARDipine HCL INJ 2.5 MG/ML 10 ML AMP ONE (14:12)
[2018-08-12] MEDS ORDERED: fentaNYL citrate 100 MCG/2 ML VIAL ONE (14:12)
[2018-08-12] MEDS ORDERED: MIDAZOLAM HCL 1 MG/ML 2ML VIAL ONE (14:12)
[2018-08-12] MEDS ORDERED: NITROGLYCERIN/D5W 100MCG/ML 20ML SYR ONE (14:13)
[2018-08-12] MEDS ORDERED: LIDOCAINE HCL 1% 20 ML VIAL ONE (14:20)
[2018-08-12] MEDS ORDERED: CLOPIDOGREL BISULFATE 300 MG TAB ONE (15:46)
--- NOTE | 2018-08-12 16:10 | Post Anesthesia Assessment ---
Date of Service August 12, 2018 Post Sedation Assessment Vital Signs Temp Pulse Pulse Resp BP BP Pulse Ox 08/12/18 15:52 70 14 98 08/12/18 11:32 36.5 C 68 16 131/74 98 08/12/18 08:00 36.5 C 79 75 16 157/88 H 98 08/12/18 07:08 37.0 C 75 18 154/80 H 97 08/12/18 04:00 36.4 C L 68 143/77 H 95 08/12/18 00:00 36.7 C 73 72 18 137/76 98 08/11/18 20:34 36.4 C L 70 18 162/79 H 97 08/11/18 19:40 77 15 150/77 H 08/11/18 19:02 87 17 08/11/18 19:01 91 H 16 165/101 H 08/11/18 19:00 90 18 08/11/18 18:02 65 22 08/11/18 18:01 69 22 162/90 H 08/11/18 17:40 67 20 149/78 H 20 L 08/11/18 17:34 69 16 08/11/18 17:31 71 149/78 H 08/11/18 17:00 75 16 08/11/18 16:25 70 18 149/75 H 08/11/18 16:14 76 98 Recovery Score Activity: Moves 4 extremities Respiration: Deep Breath/Cough Circulation: +/-20% PreAnes Value Consciousness: Fully Awake Oxygen Saturation: > 92% On Room Air Post Anesthesia Score: 10 Discharge Sedation Level of Care: Fast Track Phase II Post Sedation Plan On clinical assessment, the patient appears to have tolerated the sedation without complications. Patient is recovering as anticipated. Patient will continue to be monitored by nursing and may be discharged when sedation discharge criteria are met per below protocol. Upon Completions of procedure and additional 15 minutes continue every 5 minute vital signs and the P.A.R. score; then discharge to a Phase I or Fast Track to Phase II per the following guidelines: * Discharge Patient to appropriate Phase II area if PAR is 8 or greater or return to pre- procedure baseline. The post - procedure orders will be as directed. * If PAR score is less than 8 or not return to pre-procedure baseline then patient will follow Phase I monitoring till PAR is reached for Phase II. The Phase I may be done in procedure room or may call to secure a Phase I area. * If naloxone or flumazenil are used for reversal, hold in Phase I for continued monitoring from when last reversal dose was given for a minimum of 60 minutes or longer pending the nurse and/or physician discretion of patient condition before discharge to Phase II. Please call the Sedation Physician to re-evaluate and complete post-note for discharge to Phase II area. Do NOT discharge from procedure sedation or Phase 1 until post- sedation evaluation note is complete by procedure /sedation MD Sedation Discharge Instructions to be given to the patient at discharge to home.
--- NOTE | 2018-08-12 16:10 | Pre Anesthesia Assessment ---
Date of Service August 12, 2018 Pre Sedation Assessment Vital Signs Temp Pulse Pulse Resp BP BP Pulse Ox 08/12/18 15:52 70 14 98 08/12/18 11:32 36.5 C 68 16 131/74 98 08/12/18 08:00 36.5 C 79 75 16 157/88 H 98 08/12/18 07:08 37.0 C 75 18 154/80 H 97 08/12/18 04:00 36.4 C L 68 143/77 H 95 08/12/18 00:00 36.7 C 73 72 18 137/76 98 08/11/18 20:34 36.4 C L 70 18 162/79 H 97 08/11/18 19:40 77 15 150/77 H 08/11/18 19:02 87 17 08/11/18 19:01 91 H 16 165/101 H 08/11/18 19:00 90 18 08/11/18 18:02 65 22 08/11/18 18:01 69 22 162/90 H 08/11/18 17:40 67 20 149/78 H 20 L 08/11/18 17:34 69 16 08/11/18 17:31 71 149/78 H 08/11/18 17:00 75 16 08/11/18 16:25 70 18 149/75 H 08/11/18 16:14 76 98 Cardiovascular RRR, no murmur, no edema Respiratory normal respiratory effort, lungs clear to auscultation Pre-Sedation Airway Assessment Smoking Status: Never smoker Hx Sleep Apnea: No Hx Difficult Intubation: No Short, Thick Neck: No Thyromental Distance: > or= 3.5 Finger Breadths Oral Cavity: + WNL Mallampati Class: II Procedure Planning Contraindications for Sedation: none Current Medications Reviewed: Yes Notes The planned sedation has been discussed with the patient. Informed Consent was obtained. I have identified the patient, determined the appropriateness of sedation and have assessed the patient immediately prior to the procedure. All medicine(s) and interventions are by my order.
--- NOTE | 2018-08-12 16:24 | Cardiac Catheterization ---
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 Access: 6Fr left radial artery Catheters: JL4, JR4; EBU 3.5 guide Findings: LM -moderate caliber, short length, luminal irregularities LAD -Mid LAD stent patent, hazy segment right after distal end of stent with ELENITA 2/3 flow distal in LAD. severe ostial stenosis involving 2nd diagonal exiting from prior stent with ELENITA 3 flow. LCx - moderate caliber vessel with widely patent mid segment stent. RCA -large caliber vessel, dominant, luminal irregularities LVEDP - 3 -- PCI -- Antithrombotic therapy: Heparin, Clopidogrel Procedure: LM cannulated with EBU 3.5 guide BMW wire passed across stents, lesion into distal LAD IVUS used to assess mid LAD after stent. Stent well expanded and well appossed. Questionable dissection after stent -- decision to stent distal LAD hazyness. 2.5 x 8 [place]ed [place] PIPER overalapped with distal aspect of prior stent. Stent post-dilated with stent balloon. Post procedure ELENITA 3 flow, stent well expanded with minimal residual stenosis and no apparent cardiac complications. Arterial Closure: TR Band Summary: 1. Successful PCI of mid LAD of suspected edge dissection distal to prior stent with a single overlapping stent (2.5 x 8 Onyxe PIPER). 2. Residual 2nd diagonal ostial stenosis. 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 If in the future were to have refractory symptoms could consider complex stenting of ostial diagonal. 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 Cardiac Status Clinical evaluation leading to the procedure CAD Presenation: Non STEMI Anginal Classification: CCS IV Heart Failure: No Cardiogenic Shock within 24 Hours: No Cardiac Arrest within 24 Hours: No Imaging Studies Past 6 Months: Yes Stress Studies Past 6 Months: No Diagnostic Physicians Name: Manny Da Silva MD Status: Elective Closure Device Percutaneous Entry Location: Radial Closure Device: Radial Band Recommendations: PCI without planned CABG PCI Indication: PCI for high risk Non-JEFF Lesion Segment Name: mid LAD Culprit Artery: Yes Stenosis Prior to Rx (%): Suspected edge dissection Chronic Total Occlusion: No IVUS: No FFR: No Pre-Procedure LEENITA Flow: 2 Previously Treated Lesion: Yes Lesion Complexity: Non-High/Non-C Lesion Length (mm): 6 Thrombus Present: No Bifurcation Lesion: No Guidewire Across Lesion: Yes Intraprocedure Events Significant Disection: No Perforation: No
[2018-08-12] MEDS ORDERED: SODIUM CHLORIDE 0.9% 1000ML 1,000 ML IV SCH (17:00)
--- NOTE | 2018-08-12 17:39 | Hospitalist Progress Note ---
Date of Service August 12, 2018 Assessment & Plan (1) Chest pain: This patient is a very pleasant 68-year-old male with a history of DMII, HTN, microcytic anemia, and CAD with PCI on 08/07/18 with stents to the left circumflex and LAD, who presents with substernal to left-sided chest pain that came on with shoveling snowOn the day of admission, was nonradiating, felt different from the pain he was having prior to his cardiac catheterization, was not associated with any shortness of breath, nausea, or diaphoresis, and was relieved with 3 nitroglycerin at home. When he got to the ER, he was chest pain -free and his ECG was without any ischemic changes. His troponin was elevated at 0.2 on arrival. He was started on a heparin drip And has not had any chest pain since admission. Troponin peaked at 0.232 and then trended down Here with unstable angina Cardiac catheterization on 08/12/18 was performed and revealed: 1. Successful PCI of mid LAD of suspected edge dissection distal to prior stent with a single overlapping stent (2.5 x 8 Onyxe PIPER). 2. Residual 2nd diagonal ostial stenosis. 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 If in the future were to have refractory symptoms could consider complex stenting of ostial diagonal. -Continue telemetry -Cardiology consultation And management appreciated -Discontinue heparin drip -Continue aspirin, Plavix(Reloaded in the Pelt Grader), atorvastatin, metoprolol, and lisinopril -If stable overnight, can be discharged home in the morning (2) Multi-vessel coronary artery stenosis: With recent stent to the left circumflex and LADX2 as above -Meds as above (3) Diabetes mellitus: Last hemoglobin A1c is 7.3% 7 months ago, And now is significantly elevated at 10.5% -Hold home glipizide and metformin -Continue sliding scale insulin while here with Accu-Cheks q. before meals at bedtime -Consider sending home with insulin on discharge (4) HTN (hypertension), benign: Blood pressures Controlled here -Continue metoprolol, lisinopril -Monitor (5) Microcytic anemia: Hemoglobin 11.7 with MCV 76. Review of previous labs only revealed labs drawn in 2001 which showed hemoglobin of 13 and MCV of 83. -Hemoccult stool Still pending Iron studies show severe iron deficiency -Need to find out if he has had EGD/colonoscopy -Follow CBC -We will start on iron tablets and recommend GI follow-up as an outpatient (6) DVT prophylaxis: Aspirin, Plavix, previously on heparin drip Disposition-Continue telemetry and likely discharged home tomorrow Subjective Patient had repeat cardiac catheterization today with a stent placed to the distal LAD He denies any current pain in the chest, no shortness of breath, no abdominal pain. He is very frustrated with being here and wants to get out here soon as possible tomorrow. He reports that he only got 2 hours of sleep last night but declines sleep aid for tonight. Review of Systems All systems reviewed & are unremarkable except as noted in HPI & below Physical Exam 2 Vital Signs (Past 24 Hours): Last Vital Signs Temp 36.8 C 08/12/18 17:33 Pulse 70 08/12/18 17:33 Resp 18 08/12/18 17:33 BP 138/74 08/12/18 17:33 Pulse Ox 97 08/12/18 17:33 Constitutional: WD/WN, vitals as above Eyes: PERRL, conjunctivae normal, anicteric sclerae ENMT: external ear and nose normal, oropharynx normal Neck: trachea midline, no thyromegaly Respiratory: normal respiratory effort, lungs clear to auscultation Cardiovascular: RRR, no murmur, no edema Gastrointestinal (Abdomen): normal bowel sounds, soft, nontender, no hepatosplenomegaly Musculoskeletal: Extremities: extremities normal to inspection; no cyanosis and no clubbing Skin: no rashes, warm and dry Neurologic: moves all extremities and awake; no focal motor deficits Psychiatric: A+Ox3, euthymic affect Results & Data Laboratory Results 08/12/18 08/12/18 08/12/18 Range/Units 16:14 13:33 11:29 PT (9.0-12.0) Seconds INR (0.9-1.1) APTT 56.7 H* (21.0-31.0) Seconds PTT Ratio 2.2 Sodium (136-145) mmol/L Potassium (3.5-5.1) mmol/L Chloride (98-107) mmol/L Carbon Dioxide (21-32) mmol/L Anion Gap (3-11) BUN (7-18) mg/dl Creatinine (0.6-1.4) mg/dl Est Cr Clr Drug Dosing ml/min Est GFR ( Amer) Est GFR (Non-Af Amer) BUN/Creatinine Ratio (10-20) Glucose (70-99) mg/dl POC Glucose 128 H 184 H (70-99) Estimat Average Glucose mg/dl Hemoglobin A1c (4.5-5.6) % Calcium (8.5-10.1) mg/dl Magnesium (1.8-2.4) mg/dl Iron (35-175) mcg/dl TIBC (250-450) mcg/dl Transferrin (200-360) mg/dl Transferrin % Sat (20-50) % Ferritin (8-388) ng/ml Troponin I (0-0.045) ng/ml 08/12/18 08/12/18 08/12/18 Range/Units 07:29 06:13 06:13 PT (9.0-12.0) Seconds INR (0.9-1.1) APTT 80.5 H* (21.0-31.0) Seconds PTT Ratio 3.1 Sodium (136-145) mmol/L Potassium (3.5-5.1) mmol/L Chloride (98-107) mmol/L Carbon Dioxide (21-32) mmol/L Anion Gap (3-11) BUN (7-18) mg/dl Creatinine (0.6-1.4) mg/dl Est Cr Clr Drug Dosing ml/min Est GFR ( Amer) Est GFR (Non-Af Amer) BUN/Creatinine Ratio (10-20) Glucose (70-99) mg/dl POC Glucose 280 H (70-99) Estimat Average Glucose mg/dl Hemoglobin A1c (4.5-5.6) % Calcium (8.5-10.1) mg/dl Magnesium (1.8-2.4) mg/dl Iron 36 (35-175) mcg/dl TIBC 459 H (250-450) mcg/dl Transferrin 352 (200-360) mg/dl Transferrin % Sat 7 L (20-50) % Ferritin 12.3 (8-388) ng/ml Troponin I 0.146 H* (0-0.045) ng/ml 08/12/18 08/12/18 08/11/18 Range/Units 06:13 06:13 23:43 PT (9.0-12.0) Seconds INR (0.9-1.1) APTT 42.1 H (21.0-31.0) Seconds PTT Ratio 1.6 Sodium 133 L (136-145) mmol/L Potassium 4.6 (3.5-5.1) mmol/L Chloride 99 (98-107) mmol/L Carbon Dioxide 28 (21-32) mmol/L Anion Gap 6.0 (3-11) BUN 16 (7-18) mg/dl Creatinine 0.95 (0.6-1.4) mg/dl Est Cr Clr Drug Dosing 76.8 ml/min Est GFR ( Amer) 94.9 Est GFR (Non-Af Amer) 81.9 BUN/Creatinine Ratio 16.2 (10-20) Glucose 277 H (70-99) mg/dl POC Glucose (70-99) Estimat Average Glucose 255 mg/dl Hemoglobin A1c 10.5 H (4.5-5.6) % Calcium 8.7 (8.5-10.1) mg/dl Magnesium 2.2 (1.8-2.4) mg/dl Iron (35-175) mcg/dl TIBC (250-450) mcg/dl Transferrin (200-360) mg/dl Transferrin % Sat (20-50) % Ferritin (8-388) ng/ml Troponin I (0-0.045) ng/ml 08/11/18 08/11/18 08/11/18 Range/Units 22:28 21:49 16:00 PT 9.9 (9.0-12.0) Seconds INR 1.0 (0.9-1.1) APTT (21.0-31.0) Seconds PTT Ratio Sodium (136-145) mmol/L Potassium (3.5-5.1) mmol/L Chloride (98-107) mmol/L Carbon Dioxide (21-32) mmol/L Anion Gap (3-11) BUN (7-18) mg/dl Creatinine (0.6-1.4) mg/dl Est Cr Clr Drug Dosing ml/min Est GFR ( Amer) Est GFR (Non-Af Amer) BUN/Creatinine Ratio (10-20) Glucose (70-99) mg/dl POC Glucose 252 H (70-99) Estimat Average Glucose mg/dl Hemoglobin A1c (4.5-5.6) % Calcium (8.5-10.1) mg/dl Magnesium (1.8-2.4) mg/dl Iron (35-175) mcg/dl TIBC (250-450) mcg/dl Transferrin (200-360) mg/dl Transferrin % Sat (20-50) % Ferritin (8-388) ng/ml Troponin I 0.232 H* (0-0.045) ng/ml _ (1) Chest pain Chest pain type: precordial pain Ischemic chest pain type: Qualified Code(s ): R07.2 - Precordial pain (2) Diabetes mellitus Diabetes mellitus type: type 2 Diabetes 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
[2018-08-12] MEDS: METOPROLOL TARTRATE 50 MG TAB PO SCH (20:27)
[2018-08-13 07:53] LABS: Hematocrit (blood only) 37.7 % (42-52); Hemoglobin 11.8 g/dL (14.0-18.0); Mean Corpuscular Hgb Conc 31.3 g/dL (32-36); Mean Corpuscular Volume 77.1 fL (80-100); Mean Platelet Volume 9.3 fL (7.4-10.4); Platelet Count 241 K/uL (130-400); RDW Coefficient of Variation 14.8 % (11.5-14.5); RDW Standard Deviation 41.6 fL (36.4-46.3); Red Blood Count 4.89 M/uL (4.7-6.1); White Blood Count 6.25 K/uL (4.8-10.8)
[2018-08-13] MEDS ORDERED: FERROUS SULFATE 325 MG TAB PO SCH (08:00)
[2018-08-13 08:04] LABS: Partial Thromboplastin Time 26.5 Seconds (21.0-31.0)
[2018-08-13] MEDS: ASPIRIN 81 MG ECTAB PO SCH (08:18)
[2018-08-13] MEDS: LISINOPRIL 5 MG TAB PO SCH (08:18)
[2018-08-13] MEDS: METOPROLOL TARTRATE 50 MG TAB PO SCH (08:18)
[2018-08-13] MEDS: ATORVASTATIN 40 MG TAB PO SCH (08:19)
[2018-08-13] MEDS: CLOPIDOGREL BISULFATE 75 MG TAB PO SCH (08:19)
[2018-08-13] MEDS: INSULIN GLARGINE SOLOSTAR 100 UNITS/ML 3 ML PEN SC SCH (08:20)
[2018-08-13 08:23] LABS: BUN Creatinine Ratio 15.3 (10-20); Creatinine Clr Calc Pharmacy 85.9 ml/min; Est GFR (African American) 103.8; Est GFR (Non-African American) 89.5; Magnesium 2.4 mg/dl (1.8-2.4); Potassium 4.2 mmol/L (3.5-5.1)
[2018-08-13] MEDS: INSULIN ASPART 100 UNITS/ML 3 ML PEN SC SCH (08:24)
--- NOTE | 2018-08-13 09:08 | Cardiology Progress Note ---
Date of Service August 13, 2018 Assessment & Plan (1) Chest pain: Patient post procedure day 1 following PCI with drug-eluting stent to mid LAD in the setting of questionable edge dissection. He is feeling well today, hemodynamically and electrically stable. No recurrent chest pain. No apparent access site complications. From a cardiac standpoint he is okay for discharge today. Follow-up with me in 1-2 weeks. Home on cardiac regimen of: Aspirin 81 Clopidogrel 75 Metoprolol 50 mg twice daily (increased from admission) Atorvastatin 40 mg daily Lisinopril 5 Appreciate hospital medicine team care. Subjective Patient feeling well this morning. States that good sleep overnight. Denies any recurrent chest pain. No left wrist pain. Telemetry reviewno events overnight. Review of Systems 10 point review of systems was completed and was otherwise negative unless stated in HPI Physical Exam 2 Vital Signs (Past 24 Hours): Last Vital Signs Temp 36.6 C 08/13/18 07:54 Pulse 82 08/13/18 07:54 Resp 16 08/13/18 07:54 BP 133/74 08/13/18 07:54 Pulse Ox 95 08/13/18 07:54 Physical Exam: General: Comfortable, no acute distress Eyes: Sclerae anicteric, extraocular movements intact HENT: Oropharynx clear mucous membranes moist Lungs: Clear to auscultation bilaterally, no rhonchi or wheezes Cardiac: Regular rate and rhythm, no murmurs, rubs or gallops. Vascular: Left radial artery access site with no ecchymosis, hematoma. Distal pulse and sensation intact. Abdomen: Soft, nontender, nondistended, positive bowel sounds. Extremities: Well perfused, no peripheral edema Skin: No rashes or lesions. Neuro: Nonfocal Psych: Alert orient x3, normal affect and mood _ (1) Chest pain Chest pain type: precordial pain Ischemic chest pain type: Qualified Code(s ): R07.2 - Precordial pain
--- NOTE | 2018-08-21 21:28 | Discharge Summary ---
Date of Service date of admission - August 11, 2018 date of discharge - August 13, 2018 Admission HPI Per Admitting Provider The patient is a 68-year-old male with a history of DMII, HTN, microcytic anemia , and CAD with PCI on 08/07/18 with stents to the left circumflex and LAD, who presents with substernal to left-sided chest pain that came on with shoveling snow today, was nonradiating, felt different from the pain he was having prior to his recent cardiac catheterization, was not associated with any shortness of breath, nausea, or diaphoresis, and was relieved with 3 nitroglycerin at home. When he got to the ER, he was chest pain-free and his ECG was without any ischemic changes. His troponin was elevated at 0.2 on arrival. 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 He reports that he has been taking all the medications as prescribed since his stent placement several days ago. The ER physician contacted his registered nurse cardiovascular icu who recommended starting him on a heparin drip and observing overnight. Principal Diagnosis chest pain, minimal NSTEMI, s/p stent placement Discharge Exam Constitutional WD/WN, vitals as above ENMT external ear and nose normal, oropharynx normal Respiratory normal respiratory effort, lungs clear to auscultation Cardiovascular RRR, no murmur, no edema Heart Sounds: normal S1 and normal S2 Vessels: no JVD Gastrointestinal (Abdomen) normal bowel sounds, soft, nontender, no hepatosplenomegaly Skin left radial artery w/o hematoma Psychiatric A+Ox3, euthymic affect Discharge Data Allergies Allergy/AdvReac Type Severity Reaction Status Date / Time No Known Drug Allergies Allergy Unknown . Verified 11/28/16 06:25 Consultations cardiology - Manny Da Silva MD Ordered Studies cardiac catheterization - Manny Da Silva MD Findings: LM -moderate caliber, short length, luminal irregularities LAD -Mid LAD stent patent, hazy segment right after distal end of stent with ELENITA 2/3 flow distal in LAD. severe ostial stenosis involving 2nd diagonal exiting from prior stent with ELENITA 3 flow. LCx - moderate caliber vessel with widely patent mid segment stent. RCA -large caliber vessel, dominant, luminal irregularities Summary: 1. Successful PCI of mid LAD of suspected edge dissection distal to prior stent with a single overlapping stent (2.5 x 8 Onyxe PIPER). 2. Residual 2nd diagonal ostial stenosis. Hospital Course (1) Chest pain: The patient presented with chest pain that he had experienced while shoveling snow at home. By the time of ER arrival his pain was fully resolved. Initial EKG did not show ischemic changes. He was initiated on a heparin drip. Serial troponins demonstrated a peak troponin level of 0.2. He was seen in consultation by cardiology, Dr. Manny Da Silva, and repeat cardiac catheterization was recommended (see below). He did not experience any recurrent chest pain during his visit. He was maintained on all of his previous cardiac medications. (2) NSTEMI (non-ST elevated myocardial infarction): The patient likely suffered a very minimal NSTEMI with peak troponin 0.2. He was taken back to the cardiac slab off mill tender by Dr. Manny Da Silva and the culprit lesion was felt to be an area of possible "edge dissection" that was just distal to his previously deployed LAD stent. Dr. Da Silva stented this dissected area with another drug-eluting stent. Post-cath the patient did well with stable labs, stable vitals, and no additional ischemic symptoms. The patient will continue on aspirin, plavix, statin, JUVENTINO, and beta juana. (3) Coronary artery dissection: Possible, of the LAD vessel just distal to the previously deployed stent that was placed during the prior hospitalization. s/p repeat drug-eluting stent. (4) Multi-vessel coronary artery stenosis: See cath report for further details. (5) Microcytic anemia: The patient was counseled that he had iron deficiency. He was advised to start iron supplementation. He was also avised to obtain GI consultation for consideration of endoscopic evaluation. The patient was adamant that he would likely NOT pursue GI work-up. He was counseled about the risks of not identifying the cause of his iron deficiency. (6) Diabetes mellitus: Uncontrolled. The patient declined any change in his medication. He did not seem motivated to gain control of his DM. I recommended he follow-up with his PCP for this. He was also told that he needed to have his BMP rechecked before resuming his metformin. Total Time Total Time Spent Total Time Spent (In Minutes): 35 Total Time Includes: Examination of the Patient, Discharge Planning, Medication Reconciliation and Communication With Other Providers Discharge Plan Discharge Items Patient Disposition: Home - Self-Care Reason For Visit: CHEST PAIN Discharge Diagnosis: Additional stent placed in the left anterior descending ( "LAD") artery; this artery was felt to be the cause of your recurrent pain. Discharge Goals: Diagnostic testing Activity: Per 'Additional Instructions' section Lifting Comment: see "additional instructions" below Non-emergency contact: Primary Care Provider and Broach Trouble Shooter Call non-emergency contact if: you have any medication questions, your symptoms worsen, your pain is not controlled, your pain is worsening, your pain is unusual for you, your pain is concerning for you and your temperature is above 100.5 Follow-up/Referrals: Joby Da Silva MD [Physician] - 08/27/18 2:30 pm (Please, follow up at [facility] Cardiology Office with Dr. Da Silva on SundayAugust 27 at 2:30 pm. *This office is located in [address] of [facility] next to the hospital. If you need to change this appointment, call the office at [phone].) Prabhu Scott MD [Primary Care Provider] - 08/19/18 11:00 am (Please, follow up at Dr. Prabhu Scott's office with his associate, Vanda ROSENBERG on SundayAugust 19 at 11:00 am. *If you need to change this appointment, call their office at [phone].) Diet: Carb Consistent or DM2 and Heart Healthy Addtl Provider Instructions: From Live Sandhu - Hospitalist - 1. Instructions following your heart catheterization - ACTIVITY RECOMMENDATIONS: It is common to feel weak and fatigue for a few days. * Do not drive or operate any motorized equipment for the next three days. * Limit stair usage (2 or 3 trips a day only) for the next three days. * Do not lift anything heavier than 10 pounds with the left wrist/hand for the next three days. * Do not engage in vigorous exercise or any sports until cleared by Dr. Da Silva from Cardiology. * You may shower the day after your procedure, but do not immerse the left wrist for three days. Cleanse the site gently with soap and water. SPECIAL CARE INSTRUCTIONS: * You may replace the pressure dressing or band-aid the morning after the procedure. * After your procedure, it is normal to have a small bruise or small lump at the site. Examine your site daily for any change in the bruise or lump, redness, swelling, drainage or numbness. Notify your doctor if any change. BLEEDING: * If there is a small amount of bleeding at the site, lie down and apply firm pressure with a clean cloth for ten minutes. When the bleeding stops, lie quietly keeping the procedure limb straight for six hours. Notify your doctor as soon as possible. * If the bleeding does not stop after ten minutes or if there is a large amount of bleeding or spurting, call 911 immediately. Continue to lie down and hold firm pressure until help arrives. SKIN IRRITATION: * You may experience some redness and/or swelling in the area where radiation was administered. If any skin irritation occurs, please contact your family physician. 2. Medications - * note that your metoprolol dose has been INCREASED to 50mg twice a day. New prescription sent to your pharmacy for you. * please start cnzk-rok-bjjsuyf ferrous sulfate (iron) 325mg twice a day for 3 months. Take with a small glass of orange juice. The iron will cause your stools to be dark and may cause constipation. 3. Severe iron deficiency - * this could be a sign of gastrointestinal bleeding even if you are not seeing obvious blood with the naked eye * please speak to your family doctor about obtaining a GI referral for upper endoscopy and colonoscopy; this is the usual work-up for iron deficiency 4. Diabetes - * your hemoglobin a1c is 10.5% * please speak to your family doctor about ways to improve your control * please HOLD your metformin until you have repeat blood work at time of follow- up; ideally, however, you have a "BMP" (basic metabolic profile) within 1-2 days * continue your glipizide as previous 5. Follow-up - see separate section for details. 6. Return to [facility] if - * you experience recurrent chest pain * you use your nitroglycerin tablets for chest pain * any shortness of breath * concerns about the left wrist puncture site from the recent heart cath * fever over 100.5 degrees * any other concerns Prescriptions: New ferrous sulfate 325 mg (65 mg iron) Tablet,Delayed Release (Dr/Ec) 325 mg PO BID Qty: 60 RF: 2 metoprolol tartrate 50 mg tablet 50 mg PO BID Qty: 60 RF: 2 Continue nitroglycerin 0.4 mg Tablet, Sublingual 1 tab DIRECTED PRN (Reason: Chest Pain) RF: 0 lisinopril 5 mg Tablet 5 mg DAILY RF: 0 clopidogrel 75 mg Tablet 75 mg PO QAM 30 Days Qty: 30 RF: 11 glipizide 5 mg Tablet 5 mg PO QAM RF: 0 atorvastatin 40 mg tablet 40 mg PO QAM RF: 0 glipizide 5 mg Tablet 10 mg PO QPM RF: 0 aspirin [Aspirin Low Dose] 81 mg Tablet,Delayed Release (Dr/Ec) 81 mg PO DAILY RF: 0 Discontinued metformin 500 mg Tablet 500 mg PO HS RF: 0 Stand-Alone Forms: Replaced By [facility] Discharge Orders: Discharge Order (Routine); Ordered 08/13/18 Ordered By: Live Sandhu Admission Data Admit Date/Time: 08/12/18 17:48 Attending Provider: Live Sandhu Admit Provider: Leeanne Caro Primary Care Provider: Prabhu Scott Other Providers: Leeanne Caro ; Joby Da Silva Service: Telemetry Other Interventions: Discharge Summary Assessment (RN) Last Done: 08/13/18 10:28 Pending Studies at Discharge: No DC Date/Time DO NOT enter until pt leaves facility: 08/13/18 11:10
== END 2018-08-13 11:10 | disposition home or self-care (01) | DRG 247 ==
LOC: 2S 15:40 → ED 15:40 → 2S 20:39 → SUATTDRO 08-12 17:48